=== PATIENT | female | born 1985 | race Caucasian/White ===

== ENCOUNTER → 2018-06-27 13:00 | Outpatient (CLI) | payer MEDICAID, SELFPAY ==
[2018-06-27 14:46] LABS: HCG,Quantitative 116246 mIU/mL
== END ==
PROVIDERS: Visit Provider Emergency Medicine
DX: Z32.00 Encounter for pregnancy test, result unknown (principal)
CPT/HCPCS: 36415; 84702

== ENCOUNTER → 2018-07-11 16:52 | Outpatient (CLI) | payer MEDICAID, SELFPAY ==
[2018-07-11 17:24] LABS: Basophils # 0.1 K/mm3 (0-0.2); Basophils % 0.5 % (0.1-2.0); Eosinophils # 0.1 K/mm3 (0.0-0.4); Eosinophils % 1.2 % (0.1-12.0); Hematocrit 32.1 % (37.0-47.0); Hemoglobin 10.7 g/dL (12.2-16.2); Lymphocytes # 2.7 K/mm3 (0.7-4.5); Lymphocytes % 26.4 % (10-50); Mean Corpuscular HGB Conc 33.3 g/dL (31.8-35.4); Mean Corpuscular Hemoglobin 30.1 pg (27.0-31.2); Mean Corpuscular Volume 90.5 fl (81-99); Mean Platelet Volume 8.5 fl (7.4-10.4); Monocytes # 0.6 K/mm3 (0.1-1.0); Monocytes % 5.9 % (1.7-9.3); Neutrophils # 6.7 K/mm3 (1.8-7.8); Platelet Count 252 K/mm3 (142-424); Red Blood Count 3.55 M/mm3 (4.20-5.40); Red Cell Distribution Width 13.1 % (11.5-17.5); White Blood Count 10.1 K/mm3 (4.8-10.8)
[2018-07-11 19:47] LABS: Thyroid Stimulating Hormone 3.75 uIU/ml (0.358-3.740)
[2018-07-11 20:23] LABS: Amphetamine/Metha Screen,Urine Negative ng/mL (<1000); Barbiturates Screen,Urine Negative ng/mL (<200); Benzodiazepines Screen,Urine Negative ng/mL (<200); Cannabinoid Screen,Urine Positive ng/mL (<50); Cocaine Screen,Urine Negative ng/mL (<300); Methadone Screen,Urine Positive ng/mL (<300); Opiate Screen,Urine Negative ng/mL (<300); Phencyclidine Screen,Urine Negative ng/mL (<25)
[2018-07-13 07:16] LABS: HIV Screen 4th Generation wRfx Non Reactive (Non Reactive)
[2018-07-14 18:26] LABS: Hepatitis B Surface Antigen Negative (Negative); Rapid Plasma Reagin Ab Titer Non Reactive (NonRea<1:1); Rubella Antibodies, IgG 1.25 index (Immune >0.99)
== END ==
PROVIDERS: Visit Provider Obstetrics & Gynecology
DX: Z34.90 Encounter for supervision of normal pregnancy, unspecified, unspecified trimester (principal)
CPT/HCPCS: 36415; 80305; 84443; 85025; 86592; 86703; 86762; 86850; 87340; G0432

== ENCOUNTER → 2018-08-23 10:22 | Outpatient (CLI) | payer MEDICAID, SELFPAY ==
[2018-08-25 00:06] LABS: AFP Value 57.9 ng/mL (.); DIA MoM 1.38 (.); DSR (Second Trimester) 1 IN 3469 (.); Gest. Age on Collection Date 16.1 WEEKS (.); Maternal Age At EDD 33.6 yr (.); OSBR Risk 1 IN 3048 (.); Results Report (.); hCG MoM 0.92 (.); uE3 MoM 1.45 (.); uE3 Value 1.35 ng/mL (.)
[2018-08-26 07:47] LABS: Gestat. Age Based On EDD (.)
== END ==
PROVIDERS: Visit Provider Obstetrics & Gynecology
DX: Z34.90 Encounter for supervision of normal pregnancy, unspecified, unspecified trimester (principal)
CPT/HCPCS: 36415; 82106

== ENCOUNTER → 2018-10-24 09:07 | Outpatient (CLI) | payer MEDICAID, SELFPAY ==
[2018-10-24 14:54] LABS: Glucose 1 Hour 88 mg/dL (74-106)
== END ==
PROVIDERS: Visit Provider Obstetrics & Gynecology
DX: Z34.90 Encounter for supervision of normal pregnancy, unspecified, unspecified trimester (principal)
CPT/HCPCS: 36415; 82951

== ENCOUNTER → 2019-01-14 16:26 | Outpatient (CLI) | payer MEDICAID, SELFPAY | PROVIDERS: Visit Provider Obstetrics & Gynecology | DX: Z34.90 Encounter for supervision of normal pregnancy, unspecified, unspecified trimester (principal) | CPT/HCPCS: 86403 ==

== ENCOUNTER 2019-02-09 05:56 | Inpatient (IN) ==
--- NOTE | 2019-02-09 07:47 | Progress Note ---
Internal Medicine - PN: Subj *Date: 02/09/19 *Time: 06:15 (This 33-year-old 1 para 0 AB 0 white female has arrived in the labor room at 38-3/7 weeks in active labor. Her cervix is 9 cm dilated, completely effaced, with the presenting vertex at 0 station and bag of water intact. She is asking for an epidural but clearly there is no time for that as she is denzel strongly and regularly. Plan is for vaginal delivery. The patient is known to be in a methadone clinic and has been doing well there. She has had regular care (records in the system).) Exam Vital signs and Labs for Last 24 Hours: Laboratory Results - last 24 hr 02/09/19 06:57: Cord ABG pH 7.35 I & O for Last 24 hours: Intake & Output 02/06/19 02/07/19 02/08/19 02/09/19 11:59 11:59 11:59 11:59 Weight 130 lb
--- NOTE | 2019-02-09 07:51 | Progress Note ---
Delivery date: 02/09/19 Events: Meconium Stained Fluid Intrapartal events: Precipitous Labor < 3 hours Induction method: none Delivery augmentation: rupture of membranes Delivery monitor: external uterine, internal FHT Route of delivery: forceps Indication for instrumentation: maternal exhaustion Episiotomy description: Midline Laceration description: None Delivery repair: vicryl (2-0), other Anesthesia type: Local Disposition: floor Complications: none Narrative: This 33-year-old 1, now para 1, Ab0 white female has had regular care and has done well. She is being followed in a methadone clinic. She arrived in the labor room in active labor, writhing in pain. Her cervix was completely effaced, 9 cm, with the presenting vertex at 0 station and bag of water intact. I was called and arrived expeditiously. At 0630 she was completely effaced, completely dilated, and an amniotomy revealed thin meconium stained fluid. Attempts at electrode placement were unsuccessful, and the baby was monitored externally. She was asking for an epidural, but clearly there was no time to accomplish that. She was writhing in pain and unable to be controlled. The baby looked good on the monitor throughout this event. Ultimately she asked for help and delivery, and so outlet forceps were placed at +2 station, and the baby was easily delivered over a midline episiotomy. There was a nuchal cord x1, which was easily reduced. The baby's nasal and oropharynx were bulb suction, and DeLee suctioned for mucus and minimal fluid. The cord was clamped and cut, 3 vessels were noted to be within the cord, and cord blood was obtained. The cord pH was 7.35. The baby was handed into the arms of the attending home builder, Dr. Fried, who assigned Apgars of 3 at 1 minute and 10 at 5 minutes to this 6 pound 9 ounce, 18 inch male infant, born at 0649. The baby was recovered in good condition. The placenta was delivered spontaneously, intact, at 0652, making the total time in labor 1 hour 52 minutes. The uterus was inspected and was felt to be clean, and was involuting well, with IV Pitocin running. There were no lacerations or extensions of the midline episiotomy, which (after infusion with 10 cc of 1% Xylocaine) was closed in the usual fashion, in layers, with 2-0 Vicryl. The rectovaginal septum was intact at the close of the procedure. The uterine fundus was involuting well, with IV Pitocin running. The sponge and needle counts correct. The estimated blood loss was 350 cc. The patient tolerated the procedure well, and was recovered in good condition. Her blood type is O+. Her rubella titer is immune. She plans to bottlefeed. She will be continued on her usual methadone dosages while in the hospital.
[2019-02-09 08:07] LABS: Basophils # 0.1 K/mm3 (0-0.2); Basophils % 0.4 % (0.1-2.0); Eosinophils # 0.2 K/mm3 (0.0-0.4); Eosinophils % 1.1 % (0.1-12.0); Hematocrit 35.5 % (37.0-47.0); Hemoglobin 11.5 g/dL (12.2-16.2); Lymphocytes # 2.1 K/mm3 (0.7-4.5); Mean Corpuscular HGB Conc 32.3 g/dL (31.8-35.4); Mean Corpuscular Volume 91.1 fl (81-99); Mean Platelet Volume 11.2 fl (7.4-10.4); Monocytes # 1.4 K/mm3 (0.1-1.0); Monocytes % 7.2 % (1.7-9.3); Neutrophils # 15.5 K/mm3 (1.8-7.8); Neutrophils % 80.3 % (37.0-80.0); Platelet Count 256 K/mm3 (142-424); Red Blood Count 3.89 M/mm3 (4.20-5.40); White Blood Count 19.3 K/mm3 (4.8-10.8)
[2019-02-09 08:49] LABS: Hematocrit 29.3 % (37.0-47.0)
[2019-02-09 09:00] LABS: Hemoglobin 9.6 g/dL (12.2-16.2)
--- NOTE | 2019-02-09 09:09 | Progress Note ---
Internal Medicine - PN: Subj *Date: 02/09/19 *Time: 09:06 (I was called back to see the patient because of heavy bleeding. She has had IV Pitocin running, and has been given 0.2 mg of Methergine IM and Hemabate. When I arrived, she had passed a large clot and her bleeding it somewhat slowed. I did a pelvic examination which reveals that her uterine fundus is well involuted, but there is still some moderate bleeding. Her hemoglobin on admission was 11.5 g. A stat H&H at this time is 9.3 g. I will observe the patient for a while now, and she seems stable. Pelvic examination revealed no evidence of laceration. Plan is to observe, and repeat an H&H in 2 hours. I have told the patient that transfusion is a possibility, and I failure typed and crossed for 2units in case that is needed. Her blood pressure is 130/86. Her O2 saturation is normal.) Exam Vital signs and Labs for Last 24 Hours: Laboratory Results - last 24 hr 02/09/19 06:35: WBC 19.3 H, RBC 3.89 L, Hgb 11.5 L, Hct 35.5 L, MCV 91.1, MCH 29.5, MCHC 32.3, RDW 15.0, Plt Count 256, MPV 11.2 H, Neut % (Auto) 80.3 H, Lymph % (Auto) 11.0, [place] % (Auto) 7.2, Eos % (Auto) 1.1, Baso % (Auto) 0.4, Neut # (Auto) 15.5 H, Lymph # (Auto) 2.1, [place] # (Auto) 1.4 H, Eos # (Auto) 0.2, Baso # (Auto) 0.1 02/09/19 06:57: Cord ABG pH 7.35 02/09/19 08:03: Blood Type O Positive, Antibody Screen Negative 02/09/19 08:43: Hgb 9.6 L D, Hct 29.3 L I & O for Last 24 hours: Intake & Output 02/06/19 02/07/19 02/08/19 02/09/19 11:59 11:59 11:59 11:59 Weight 130 lb
[2019-02-09 09:56] LABS: Lymphocytes % 13 % (10-50); Monocytes % 7 % (2-9); Neutrophils % 77 % (42-76); Total Cells Counted 100
[2019-02-09 09:57] LABS: RBC Morphology Normal
--- NOTE | 2019-02-09 10:19 | Progress Note ---
Internal Medicine - PN: Subj *Date: 02/09/19 *Time: 10:18 (I was called back a second time to see the patient who is again begun bleeding heavily. Blood pressure 100 over 50s. DTRs are normal. Estimated blood loss at this time is 2000 cc. She has been typed and crossed and blood will be started. I discussed with her taking her to the operating room for an examination under anesthesia and dilatation and evacuation. Risks and benefits have been discussed and she accepts this plan. She will be brought forthwith to the operating room and transfusion will be begun.) Exam Vital signs and Labs for Last 24 Hours: Laboratory Results - last 24 hr 02/09/19 06:35: WBC 19.3 H, RBC 3.89 L, Hgb 11.5 L, Hct 35.5 L, MCV 91.1, MCH 29.5, MCHC 32.3, RDW 15.0, Plt Count 256, MPV 11.2 H, Neut % (Auto) 80.3 H, Lymph % (Auto) 11.0, [place] % (Auto) 7.2, Eos % (Auto) 1.1, Baso % (Auto) 0.4, Neut # (Auto) 15.5 H, Lymph # (Auto) 2.1, [place] # (Auto) 1.4 H, Eos # (Auto) 0.2, Baso # (Auto) 0.1, Total Counted 100, Neutrophils % (Manual) 77 H, Band Neutrophils % 3.0, Lymphocytes % (Manual) 13, Monocytes % (Manual) 7, Platelet Estimate Normal, RBC Morphology Normal 02/09/19 06:57: Cord ABG pH 7.35 02/09/19 08:03: Blood Type O Positive, Antibody Screen Negative, Crossmatch (AHG) See Detail 02/09/19 08:43: Hgb 9.6 L D, Hct 29.3 L I & O for Last 24 hours: Intake & Output 02/06/19 02/07/19 02/08/19 02/09/19 11:59 11:59 11:59 11:59 Weight 130 lb
--- NOTE | 2019-02-09 11:10 | Operative Note ---
Date of procedure: 02/09/19 (4-hours forceps delivery-- hemorrhage, failed to be controlled with intravenous Pitocin, intramuscular Methergine, and Hemabate. Initial hemoglobin of 11.5 g; hemoglobin 9.3 g.) Pre-op Diagnosis:: hemorrhage Post-op Diagnosis:: 1. hemorrhage. 2. Retained products of conception. 3. Right sulcus tear. Procedure performed:: 1. Examination under anesthesia. 2. Dilatation and evacuation. 3. Repair of vaginal laceration. Surgeon:: Christiano Loving MD ACTUARIAL SCIENCE PROFESSOR:: Magen Stapleton Anesthesia: GETA Estimated blood loss (mL): 100 Operative findings:: 1. Retained products of conception. 2. Necrotic-appearing cervix. 3. Right sulcus tear. Operative note:: After the patient was prepped and draped in usual fashion and general anesthesia was administered, a weighted speculum was placed within the posterior fourchette of the vagina. The cervix was identified and at the introitus. Bimanual examination suggested a well involuted uterus, but the cervix easily admitted a #20 Hegar dilator, and a sharp curette was introduced into the endometrial cavity, with retrieval of a moderate amount of retained products of conception/placental tissue. Intravenous Pitocin was being infused during the procedure, as was the first of at least 2 units of packed cells. The cervix itself did not appear to be bleeding, but it had a necrotic appearance, and was very friable. It was oversewn in a circumferential fashion with #1 Vicryl for hemostasis. The only other finding was a fairly large right lateral sulcus tear, which did not apply appear to be actively bleeding. However it was also oversewn with a running locked suture of #1 Vicryl. There were no other findings consistent with bleeding. The fundus was palpated and kneaded, without significant bleeding. A second unit of blood was begun. The instruments were removed. The sponge and needle count was correct. The estimated blood loss for the procedure was 100 cc. A vaginal pack was placed in the vagina for evaluation of subsequent bleeding. The patient tolerated the procedure well, and was taken to PACU in stable condition. She will be followed closely for further blood loss and the possible need for further transfusion. It should be noted that she was given 2 g of Ancef preoperatively, and will be continued on that prophylactically for 2 more doses. Condition: stable Disposition: PACU Specimens:: Products of conception Complications:: None
--- NOTE | 2019-02-09 11:40 | Progress Note ---
[facility] Anesthesia Checklist - Patient Identification Patient Identification: Arm Band, Verbal (Name & ) - Structural Data Admitted From: Inpatient Planned Operative Procedure/s: D&E Consent for Planned Operative Procedure(s) Verified: Yes Verified Documents: Surgical Consent, History and Physical - Chart Verification Results Verified: CBC - Additional verifications Patient : No Anesthesia Reactions: No - Airway Assessment C-Spine Mobility Assessed: Yes TMJ Mobility Assessed: Yes Dentition: Poor Dentition - Neurological Assessment Level of Consciousness: Awake, Alert, Follows Commands, Lethargic, Restless Hx Seizures: No Numbness or tingling in extremities: No - Psychosocial Assessment Concerns Regarding Surgery: Pt states she is nervous, appears anxious. - Anesthesia Plan Anesthesia Risk discussed: Yes Anesthesia Plan: Verified ASA Class: III (Emergent) Anesthesia Type: General - Preoperative Comments Pre-Operative Comments: Pt assessed, lethargic, anxious, restless. EBL prior to surgery 2000ml. [facility] History I have reviewed the patient's past medical history: Yes Medical History: Reports:: Hepatitis (Hep C) Denies:: Diabetes Mellitus Type 1, Diabetes Mellitus Type 2 *Have you ever received a pneumonia vaccine?: No *Have you received a flu vaccine this season?: No (NA) Anesthesia experience/problems:: No prior complications Laterality Cases: Bilateral: Tonsillectomy Amputation: No Fractures: No - *Social History Smoking Status: Current every day smoker Tobacco Type: cigarettes # Packs/Day (cigarettes): 1 Alcohol Intake: never Alcohol Intake Frequency:: other Substance Use Type: former substance user, marijuana, heroin, opiates *Occupational Status:: unemployed *Travel in the last 8 weeks: None (NA) Family Hx:: No significant family history
--- NOTE | 2019-02-09 11:46 | Progress Note ---
[facility] Anesthesia Record Part I Intake, IV Amount: 1,700 Estimated blood loss (mL): 500 (2000 ml prior to OR) Urine output (mL): 0 (NM) Blood Products used (#): PRBC's (PRBC x2) Blood Pressure: 127/57 SaO2: 98 Pulse Rate: 106 Respiratory Rate: 22 Temperature: 97.4 F Patient is:: Awake, Stable Stable to PACU at:: 11:25 Comments:: Anthony hugger blanket used in PACU. Pt tolerated procedure well, Pain score 5/10, nausea noted, medication administered. V/S stable
--- NOTE | 2019-02-09 11:47 | Progress Note ---
[facility] Anesthesia Record Part II Discharge Time: 11:55 Destination: Obstetric PACU nurse assessment reviewed?: Yes Patient Condition:: Fair (Pt remains in mild/moderate pain, pt educated about difficulty to treat pain due to Methadone medication use.) Anesthesia Complications:: None Swallowing reflex intact?: Yes Cyanosis?: No
[2019-02-09 12:34] LABS: Hematocrit 27.6 % (37.0-47.0); Hemoglobin 9.7 g/dL (12.2-16.2)
[2019-02-09 17:40] LABS: Hematocrit 27.9 % (37.0-47.0); Hemoglobin 9.4 g/dL (12.2-16.2)
[2019-02-09 19:01] LABS: Microscopic, Urine URINE MICROSCOPIC (MICROSCOPIC)
[2019-02-09 19:26] LABS: Appearance,Urine CLEAR (Clear); Bilirubin,Urine Negative (Negative); Blood, Urine 2+ (Negative); Color,Urine YELLOW (Yellow); Glucose,Urine (UA) Negative (Negative); Ketones,Urine Negative (Negative); Leukocyte Esterase,Urine Negative (Negative); PH,Urine 6.5 (5.0-8.5); Protein,Urine Negative (Negative); Urobilinogen,Urine 0.2 EU/dl (0.2)
[2019-02-09 19:31] LABS: Amphetamine/Metha Screen,Urine Negative ng/mL (<1000); Barbiturates Screen,Urine Negative ng/mL (<200); Benzodiazepines Screen,Urine Positive ng/mL (<200); Cannabinoid Screen,Urine Positive ng/mL (<50); Cocaine Screen,Urine Negative ng/mL (<300); Methadone Screen,Urine Positive ng/mL (<300); Opiate Screen,Urine Positive ng/mL (<300); Phencyclidine Screen,Urine Negative ng/mL (<25)
[2019-02-10 05:53] LABS: Hematocrit 20.9 % (37.0-47.0); Hemoglobin 7.1 g/dL (12.2-16.2)
--- NOTE | 2019-02-10 07:11 | Progress Note ---
Internal Medicine - PN: Subj *Date: 02/10/19 *Time: 07:09 (This is and postop day #1. The patient is afebrile. Her vital signs are stable. Her abdomen is soft. Her lochia is now normal. Her uterine fundus has involuted well. After her vaginal pack was removed, there has been minimal to the normal lochia. During the night she complained of some shortness of breath, but has a history of bronchitis. A chest x-ray was normal, and she received a nebulizer treatment, which has helped. Her hemoglobin after 2 units of transfused packed cells is 7.1 this morning, and she will be transfused 2 more units today. The baby is doing well and has been circumcised. The patient is now planning to breast-feed. Impression: Improving.) Exam Vital signs and Labs for Last 24 Hours: Temp Pulse Resp BP Pulse Ox 98.8 F 85 18 127/64 96 02/10/19 03:00 02/10/19 03:00 02/10/19 03:00 02/10/19 03:00 02/10/19 03:00 Laboratory Results - last 24 hr 02/09/19 06:35: WBC 19.3 H, RBC 3.89 L, Hgb 11.5 L, Hct 35.5 L, MCV 91.1, MCH 29.5, MCHC 32.3, RDW 15.0, Plt Count 256, MPV 11.2 H, Neut % (Auto) 80.3 H, Lymph % (Auto) 11.0, [place] % (Auto) 7.2, Eos % (Auto) 1.1, Baso % (Auto) 0.4, Neut # (Auto) 15.5 H, Lymph # (Auto) 2.1, [place] # (Auto) 1.4 H, Eos # (Auto) 0.2, Baso # (Auto) 0.1, Total Counted 100, Neutrophils % (Manual) 77 H, Band Neutrophils % 3.0, Lymphocytes % (Manual) 13, Monocytes % (Manual) 7, Platelet Estimate Normal, RBC Morphology Normal 02/09/19 08:03: Blood Type O Positive, Antibody Screen Negative, Crossmatch (AHG) See Detail 02/09/19 08:43: Hgb 9.6 L D, Hct 29.3 L 02/09/19 12:28: Hgb 9.7 L, Hct 27.6 L 02/09/19 17:30: Hgb 9.4 L, Hct 27.9 L 02/09/19 18:45: Urine Opiates Screen Positive H, Urine Methadone Screen Positive H, Ur Barbituates Screen Negative, Ur Phencyclidine Scrn Negative, Ur Amphetamines Screen Negative, U Benzodiazepines Scrn Positive H, Urine Cocaine Screen Negative, U Marijuana (THC) Screen Positive H 02/09/19 18:45: Urine Color Yellow, Urine Appearance Clear, Urine pH 6.5, Ur Specific [place] 1.010, Urine Protein Negative, Urine Glucose (UA) Negative, Urine Ketones Negative, Urine Blood 2+, Urine Nitrate Negative, Urine Bilirubin Negative, Urine Urobilinogen 0.2, Ur Leukocyte Esterase Negative, Urine RBC 5-10 02/10/19 05:45: Hgb 7.1 L* D, Hct 20.9 L* I & O for Last 24 hours: Intake & Output 02/07/19 02/08/19 02/09/19 02/10/19 11:59 11:59 11:59 11:59 Intake Total 1700 / 1700 150 / 150 Balance 1700 / 1700 150 / 150 Weight 140 lb
[2019-02-10 14:35] LABS: Hemoglobin 10.2 g/dL (12.2-16.2)
--- NOTE | 2019-02-10 15:24 | Progress Note ---
Internal Medicine - PN: Subj *Date: 02/10/19 *Time: 15:23 (Patient has now had her third and fourth units of blood. Her h emoglobin is 10.2 g. She has minimal bleeding, and feels well. She is breast- feeding. Impression: Stable.) Exam Vital signs and Labs for Last 24 Hours: Temp Pulse Resp BP Pulse Ox 98.9 F 91 H 20 119/69 96 02/10/19 14:06 02/10/19 14:06 02/10/19 14:06 02/10/19 14:06 02/10/19 14:06 Laboratory Results - last 24 hr 02/09/19 08:03: Blood Type O Positive, Antibody Screen Negative, Crossmatch (AHG) See Detail 02/09/19 17:30: Hgb 9.4 L, Hct 27.9 L 02/09/19 18:45: Urine Opiates Screen Positive H, Urine Methadone Screen Positive H, Ur Barbituates Screen Negative, Ur Phencyclidine Scrn Negative, Ur Amphetamines Screen Negative, U Benzodiazepines Scrn Positive H, Urine Cocaine Screen Negative, U Marijuana (THC) Screen Positive H 02/09/19 18:45: Urine Color Yellow, Urine Appearance Clear, Urine pH 6.5, Ur Specific [place] 1.010, Urine Protein Negative, Urine Glucose (UA) Negative, Urine Ketones Negative, Urine Blood 2+, Urine Nitrate Negative, Urine Bilirubin Negative, Urine Urobilinogen 0.2, Ur Leukocyte Esterase Negative, Urine RBC 5-10 02/10/19 05:45: Hgb 7.1 L* D, Hct 20.9 L* 02/10/19 14:10: Hgb 10.2 L D, Hct 30.0 L I & O for Last 24 hours: Intake & Output 02/08/19 02/09/19 02/10/19 02/11/19 11:59 11:59 11:59 11:59 Intake Total 1700 / 1700 400 / 400 250 / 250 Balance 1700 / 1700 400 / 400 250 / 250 Weight 140 lb
[2019-02-11 07:00] LABS: Hematocrit 27.4 % (37.0-47.0)
--- NOTE | 2019-02-11 07:14 | Consult Report ---
*Admission Date: 02/09/19 *Reason for consult:: Cough and shortness of breath *History of present illness: 33-year-old female who delivered her first child here at the hospital on February 09 has been having cough, shortness of breath since admission. I was consulted for medical evaluation of her symptoms. Patient reports being treated for bronchitis in the days leading up to her hospitalization and had actually been taking a Z-Erick. After delivery due to hemorrhage she had to be taken to the operating room. She was transfused 2 units of packed red blood cells yesterday. She was reporting to the nurses that she had shortness of breath and cough and nursing staff reported to me wheezing and rhonchi in this patient. Patient was started on breathing treatments and given a dose of prednisone. Chest x-ray was ordered which was negative for pneumonia. Patient was also given an oral dose of prednisone. This morning patient reports slight improvement in symptoms. She is 1/2 pack/day smoker although has not had a cigarette since hospitalization and is using nicotine patches. Her cough is nonproductive. She denies fevers and chills here in the hospital or at home [facility] History I have reviewed the patient's past medical history: Yes Medical History: Reports:: Hepatitis (Hep C) Denies:: Diabetes Mellitus Type 1, Diabetes Mellitus Type 2, Seizures *Have you ever received a pneumonia vaccine?: No *Have you received a flu vaccine this season?: No (NA) Anesthesia experience/problems:: No prior complications Laterality Cases: Bilateral: Tonsillectomy Other Surgeries: No: Amputation: No Fractures: No - *Social History Smoking Status: Current every day smoker Tobacco Type: cigarettes # Packs/Day (cigarettes): 1 Alcohol Intake: never Alcohol Intake Frequency:: other Substance Use Type: former substance user, marijuana, heroin, opiates *Occupational Status:: employed *Travel in the last 8 weeks: None (NA) Family Hx:: No significant family history Para: 0 Review of Systems - Constitutional Denies anorexia, Denies body ache(s), Denies chills - *Cardiovascular Denies chest pain, Denies chest pain at rest - *Respiratory Reports chest congestion, Reports cough, Reports shortness of breath, Reports wheezing, Denies change in phlegm color, Denies coughing up blood, Denies pain on inspiration, Denies pain with cough, Denies snoring, Denies stridor Meds Home Medications Medication Instructions Recorded Confirmed Type Acetaminophen [Tylenol 325mg 325 mg PO Q6H PRN 30 Days #120 tab 02/07/19 02/09/19 Rx Tablet] Azithromycin [Zithromax 250mg 250 mg PO DIRECTED 02/09/19 02/09/19 History tab] Methadone HCl [Methadone 10mg 50 mg PO DAILY 02/09/19 02/09/19 History Tablet] Allergies Allergy/AdvReac Type Severity Reaction Status Date / Time sulfamethoxazole Allergy Verified 02/03/19 13:56 [From Bactrim] trimethoprim [From Bactrim] Allergy Verified 02/03/19 13:56 Exam Vital signs and Labs for Last 24 Hours: Temp Pulse Resp BP Pulse Ox 98.3 F 81 16 131/77 96 02/11/19 04:00 02/11/19 06:21 02/11/19 04:00 02/11/19 04:00 02/10/19 20:49 Laboratory Results - last 24 hr 02/09/19 08:03: Blood Type O Positive, Antibody Screen Negative, Crossmatch (AHG) See Detail 02/10/19 14:10: Hgb 10.2 L D, Hct 30.0 L I & O for Last 24 hours: Intake & Output 02/08/19 02/09/19 02/10/19 02/11/19 11:59 11:59 11:59 11:59 Intake Total 1700 / 1700 400 / 400 250 / 250 Balance 1700 / 1700 400 / 400 250 / 250 Weight 140 lb - Constitutional no acute distress - *Routine HEENT Exam Head: Present: normocephalic Eye: Present: EOMI, PERRL ENT: Present: mucous membranes moist - *Routine Respiratory Exam Present: rhonchi, wheezes - *Routine Cardiovascular Exam Present: RRR, Normal S1, Normal S2 - *Routine Extremities Exam Present: full ROM. Absent: clubbing, edema Internal Medicine - CN: Reslt - Labs CBC & Chem 7: 02/10/19 14:10 Labs: Short CBC 02/10/19 Range/Units 14:10 Hgb 10.2 L D (12.2-16.2) g/dL Hct 30.0 L (37.0-47.0) % Assessment and Plan (1) Acute bronchitis, unspecified Current visit: No Status: Acute Qualifiers: Bronchitis organism: unspecified organism Qualified Code(s): J20.9 - Acute bronchitis, unspecified Category: Medical Code(s): J20.9 - Acute bronchitis, unspecified - Assessment and plan all Dx Assessment and Plan for all problems:: Continue oral steroids and azithromycin. Continue breathing treatments. Use incentive spirometer. Ambulate.
--- NOTE | 2019-02-11 07:18 | Progress Note ---
Internal Medicine - PN: Subj *Date: 02/11/19 *Time: 07:16 (This is day #2. The patient is afebrile. Her vital signs are stable. Her lochia is normal (minimal bleeding). Abdomen soft. Uterine fundus has involuted well. She is pumping her breasts for breast milk. She is receiving breathing treatments 4 times a day (per Dr. Fried), and her respiratory effort is much better. The baby is being held for observation. The plan is to observe the patient today for possible discharge tomorrow.) Exam Vital signs and Labs for Last 24 Hours: Temp Pulse Resp BP Pulse Ox 98.3 F 81 16 131/77 96 02/11/19 04:00 02/11/19 06:21 02/11/19 04:00 02/11/19 04:00 02/10/19 20:49 Laboratory Results - last 24 hr 02/09/19 08:03: Blood Type O Positive, Antibody Screen Negative, Crossmatch (AHG) See Detail 02/10/19 14:10: Hgb 10.2 L D, Hct 30.0 L 02/11/19 06:18: Hct 27.4 L I & O for Last 24 hours: Intake & Output 02/08/19 02/09/19 02/10/19 02/11/19 11:59 11:59 11:59 11:59 Intake Total 1700 / 1700 400 / 400 250 / 250 Balance 1700 / 1700 400 / 400 250 / 250 Weight 140 lb Assessment and Plan (1) Acute bronchitis, unspecified Current visit: No Status: Acute Qualifiers: Bronchitis organism: unspecified organism Qualified Code(s): J20.9 - Acute bronchitis, unspecified Category: Medical Code(s): J20.9 - Acute bronchitis, unspecified
[2019-02-11 07:20] LABS: Hemoglobin 9.2 g/dL (12.2-16.2)
[2019-02-11 12:01] VITALS: BP 116/53
--- NOTE | 2019-02-11 14:40 | Progress Note ---
Internal Medicine - PN: Subj *Date: 02/11/19 *Time: 14:39 (The patient is doing better from a respiratory standpoint. How ever, the baby is being transferred to because of withdrawal symptoms, and the patient wishes discharge. I am going to discharge her at this point time with follow-up in 2 weeks. She can follow-up with Dr. Fried with regard to any respiratory issues.) Exam Vital signs and Labs for Last 24 Hours: Temp Pulse Resp BP Pulse Ox 98.1 F 102 H 20 116/53 L 98 02/11/19 12:00 02/11/19 13:50 02/11/19 12:00 02/11/19 12:00 02/11/19 12:00 Laboratory Results - last 24 hr 02/11/19 06:18: Hgb 9.2 L, Hct 27.4 L I & O for Last 24 hours: Intake & Output 02/09/19 02/10/19 02/11/19 02/12/19 11:59 11:59 11:59 11:59 Intake Total 1700 / 1700 400 / 400 250 / 250 Balance 1700 / 1700 400 / 400 250 / 250 Weight 140 lb Assessment and Plan (1) Acute bronchitis, unspecified Current visit: No Status: Acute Qualifiers: Bronchitis organism: unspecified organism Qualified Code(s): J20.9 - Acute bronchitis, unspecified Category: Medical Code(s): J20.9 - Acute bronchitis, unspecified
--- NOTE | 2019-02-11 14:47 | Discharge Summary ---
General - General Admission date:: 02/09/19 Discharge date: 02/11/19 (This 33-year-old 1, now para 1, Ab0 white female was admitted at 39-3/7 weeks in active labor at 9 cm of dilatation. She had been attending a methadone clinic and doing well there. She went steadily to completion, but was writhing in pain and unable to push effectively. She was delivered by outlet forceps over a midline episiotomy at 0652 on 02/09/2019. The baby was an 3/10, 6 pound 9 ounce, 18 inch male , who is breast- feeding, has been circumcised, and initially did well. Subsequently the baby developed severe withdrawal symptoms and is being transferred to at this time. Postoperatively, the patient bled heavily and was subsequently taken to the operating room for a D&C and oversewing of a right sulcus tear. Her hemoglobin from an initial 9.6 g on admission dropped to 7.1 g, and she was transfused a total of 4 units of packed cells, at which her hemoglobin is stabilized at 9.2 g. She also had symptoms of respiratory distress. A chest x- ray was normal, but she was diagnosed with acute bronchitis and was seen by Dr. Fried in consultation. She was started on nebulizer treatments and her symptoms have greatly improved. She is anxious for discharge because the baby is being transferred. She is discharged home on the second day and postoperative day on iron 3 times a day and vitamins daily, and on Tylenol Motrin, as needed for pain. She is to resume her methadone clinic on a daily basis. She is to follow-up with Dr. Fried for any respiratory difficulties. She is given appropriate instructions as to diet, exercise, and episiotomy care, and she is to return the office in 2 weeks for follow-up. Her blood type is O+. Her rubella titer is immune. ) Hospital Course Rhogam Administration: Not Indicated Objective Vital signs: Temp Pulse Resp BP Pulse Ox 98.1 F 102 H 20 116/53 L 98 02/11/19 12:00 02/11/19 13:50 02/11/19 12:00 02/11/19 12:00 02/11/19 12:00 Results Labs on day of discharge: Labs from last 24 hours 02/11/19 06:18 Hgb 9.2 L Hct 27.4 L DS: Diagnosis - Discharge Diagnosis (1) Acute bronchitis, unspecified Status: Acute Discharge Plan - Patient Discharge Instructions ACTIVITY: Ambulate as tolerated DIET: advance to your usual diet Additional Instructions: NO HEAVY LIFTING, NO DRIVING FOR 2 WEEKS, NOTHING IN VAGINA FOR 6 WEEKS. Patient Instructions: Depression, Hemorrhage, [facility] Post Discharge Instructions - Follow up Plan Follow up with: Christiano Loving MD [Staff Physician] - Disposition: Home, Self-Senior Care Medications: Home Medications Medication Instructions Recorded Confirmed Type Acetaminophen [Tylenol 325mg 325 mg PO Q6H PRN 30 Days #120 tab 02/07/19 02/09/19 Rx Tablet] Azithromycin [Zithromax 250mg 250 mg PO DIRECTED 02/09/19 02/09/19 History tab] Methadone HCl [Methadone 10mg 50 mg PO DAILY 02/09/19 02/09/19 History Tablet] Prescriptions/Medication Reconciliation: New predniSONE [Deltasone 20mg tablet] 20 mg PO DAILY tablet Methadone HCl [Methadone 10mg Tablet] 50 mg PO DAILY tablet Continued Acetaminophen [Tylenol 325mg Tablet] 325 mg PO Q6H PRN 30 Days #120 tab PRN Reason: As Needed For Fever Or Pain Methadone HCl [Methadone 10mg Tablet] 50 mg PO DAILY Discontinued Azithromycin [Zithromax 250mg tab] 250 mg PO DIRECTED - Problem Reconciliation Problems Reviewed?: Yes
== END 2019-02-11 15:45 | disposition home or self-care (01) | DRG 798 ==
LOC: OBOUT 05:56 → OB 06:01
PROVIDERS: ADMIT Obstetrics & Gynecology; ATTEND Obstetrics & Gynecology
CPT/HCPCS: 36415; 59025; 71010; 71045; 80305; 81001; 82800; 85007; 85014; 85018; 85025; 86850; 88305; 88307; 94640; 94761; 99201; J0131; J2405; P9016

== ENCOUNTER → 2019-11-03 11:17 | Outpatient (CLI) | payer MEDICAID, SELFPAY ==
[2019-11-03 13:59] LABS: Coronavirus 19 IgG Antibody Negative (Negative); Coronavirus 19 IgM Antibody Negative (Negative)
[2019-11-03 15:40] LABS: HCG,Quantitative < 2 mIU/ml (0-5.42)
== END ==
PROVIDERS: Visit Provider Obstetrics & Gynecology
DX: Z03.818 Encounter for observation for suspected exposure to other biological agents ruled out (principal); Z32.00 Encounter for pregnancy test, result unknown
CPT/HCPCS: 36415; 84702; 86328

== ENCOUNTER → 2019-11-07 15:23 | Outpatient (CLI) | payer MEDICAID, SELFPAY ==
--- NOTE | 2019-11-07 15:23 | US_ITS ---
PROCEDURE: US TRANSVAGINAL CLINICAL INDICATION: US T/V- pelvic pain Severe pelvic pain with prolonged vaginal bleeding COMPARISON: No exams were available for comparison FINDINGS: UTERUS: 7cm x 4cmx 4cm with a combined endometrial thickness of 2.9mm LEFT OVARY: [id number] with a volume of 53.4ml. There is a 3.8 by 4 cm left adnexal mass which is somewhat hyperechoic with heterogeneous echotexture and may represent an endometrioma or hemorrhagic cyst. RIGHT OVARY: [id number] with a volume of 6.5ml. Small follicles of the right ovary noted. No cul-de-sac fluid. IMPRESSION: 4 cm left adnexal mass. This may be due to an endometrioma or hemorrhagic ovarian cyst. Suggest 6-12 week follow-up to confirm resolution Dictated by: Donal Donohue MD 11/07/2019 16:16 Electronically signed by Donal Donohue MD in [place] 11/07/2019 16:16
== END ==
PROVIDERS: PCP Pediatrics; Visit Provider Obstetrics & Gynecology
DX: R10.2 Pelvic and perineal pain (principal)
CPT/HCPCS: 76830

== ENCOUNTER → 2019-11-12 09:01 | Outpatient (CLI) | payer MEDICAID, SELFPAY ==
[2019-11-12 09:58] LABS: Basophils # 0.1 K/mm3 (0-0.2); Basophils % 0.7 % (0.1-2.0); Eosinophils # 0.2 K/mm3 (0.0-0.4); Eosinophils % 2.6 % (0.1-12.0); Hematocrit 35.7 % (37.0-47.0); Lymphocytes # 2.9 K/mm3 (0.7-4.5); Lymphocytes % 40.2 % (10-50); Mean Corpuscular HGB Conc 33.7 g/dL (31.8-35.4); Mean Corpuscular Hemoglobin 29.9 pg (27.0-31.2); Mean Corpuscular Volume 88.8 fl (81-99); Mean Platelet Volume 8.4 fl (7.4-10.4); Monocytes # 0.6 K/mm3 (0.1-1.0); Monocytes % 8.5 % (1.7-9.3); Neutrophils # 3.5 K/mm3 (1.8-7.8); Platelet Count 259 K/mm3 (142-424); Red Blood Count 4.02 M/mm3 (4.20-5.40); Red Cell Distribution Width 13.3 % (11.5-17.5); White Blood Count 7.2 K/mm3 (4.8-10.8)
[2019-11-12 10:48] LABS: Chloride 105 mmol/L (98-107)
[2019-11-12 10:49] LABS: Potassium 4.2 mmoL/L (3.5-5.1); Sodium 139 mmol/L (136-145)
[2019-11-12 10:51] LABS: Alanine Aminotransferase 10 U/L (12-78); Alkaline Phosphatase 57 U/L (38-126); Aspartate Amino Transferase 26 U/L (14-36); Bilirubin,Total 0.4 mg/dl (0.2-1.3); Blood Urea Nitrogen 10 mg/dl (7-17); Estimated Glomerular Filt Rate 82 ml/min (>60); GFR (African American) 99 ML/MIN (>60)
[2019-11-12 10:52] LABS: Albumin Level 3.8 g/dl (3.5-5.0); Albumin/Globulin Ratio 1.4 (1.1-1.8); Anion Gap 11.2 mEq/L (5-15); Calcium 8.9 mg/dl (8.4-10.2); Carbon Dioxide 27 mmol/L (22.0-30.0); Globulin 2.8 g/dL (1.3-3.2); Glucose 93 mg/dl (74-100); Total Protein,Serum 6.6 g/dl (6.3-8.2)
[2019-11-12 11:10] LABS: HCG,Quantitative < 2 mIU/ml (0-5.42)
[2019-11-12 12:53] LABS: Coronavirus 19 IgG Antibody Negative (Negative); Coronavirus 19 IgM Antibody Negative (Negative)
== END ==
PROVIDERS: Visit Provider Obstetrics & Gynecology
DX: Z01.818 Encounter for other preprocedural examination (principal); N80.9 Endometriosis, unspecified
CPT/HCPCS: 36415; 80053; 84702; 85025; 86328

== ENCOUNTER 2019-11-14 10:29 | Day surgery (SDC) | payer MEDICAID, SELFPAY ==
[2019-11-14] VITALS (14 sets, daily range): BP systolic 101–142; BP diastolic 60–77; PULSE 71–116; RESP 12–20; TEMP 36.6–43; O2SAT 94–100
[2019-11-14 11:46] LABS: HCG Qualitative, Serum Negative (Negative)
--- NOTE | 2019-11-14 13:38 | P.PN_ITS ---
[facility] Anesthesia Checklist - Structural Data Admitted From: Home Planned Operative Procedure/s: dx lap Consent for Planned Operative Procedure(s) Verified: Yes - Additional verifications Anesthesia Reactions: No Hx Blood Transfusions: Yes Blood Transfusion Reaction: No - Airway Assessment C-Spine Mobility Assessed: Yes TMJ Mobility Assessed: Yes Dentition: Good Dentition - Neurological Assessment Level of Consciousness: Awake, Alert, Appropriate - Anesthesia Plan Anesthesia Risk discussed: Yes Anesthesia Plan: Verified ASA Class: II Anesthesia Type: General [facility] History I have reviewed the patient's past medical history: Yes Medical History: Reports:: Hepatitis Denies:: Cancer, Diabetes Mellitus Type 1, Diabetes Mellitus Type 2, MRSA, Seizures *Have you ever received a pneumonia vaccine?: No *Have you received a flu vaccine this season?: No Other Medical History: Denies: Blood Transfusion Reaction Anesthesia experience/problems:: none Laterality Cases: Left: Arthroscopy Knee, Breast Biopsy, Bilateral: Tonsillectomy Other Surgeries: No: Amputation: No Fractures: No - *Social History Last grade of school completed: High school graduate Smoking Status: Current every day smoker Tobacco Type: cigarettes # Packs/Day (cigarettes): 1 Alcohol Intake: never Alcohol Intake Frequency:: other Substance Use Type: denies use *Occupational Status:: employed Housing: house Household Members: children *Travel in the last 8 weeks: None Family Hx:: No significant family history
--- NOTE | 2019-11-14 14:42 | HMH.ANESI ---
[facility] Anesthesia Record Part I Intake, IV Amount: 1,500 Estimated blood loss (mL): 25 Urine output (mL): 0 Blood Pressure: 116/72 SaO2: 97 Pulse Rate: 113 Respiratory Rate: 20 Temperature: 98 F Patient is:: Awake, Stable Stable to PACU at:: 14:40
--- NOTE | 2019-11-14 14:56 | HMH.OPNOTE ---
Date of procedure: 11/14/19 Pre-op Diagnosis:: 1. Pelvic pain 2. Left adnexal mass 3. Endometriosis 4. DUB 5. Nexplanon in place Post-op Diagnosis:: 1. Pelvic pain 2. Left adnexal mass 3. Endometriosis 4. DUB 5. Nexplanon in place Procedure performed:: 1. Diagnostic laparoscopy 2. Left salpingo-oophorectomy 3. Nexplanon removal Surgeon:: Ramona Gibbs MD SWITCHING OPERATOR:: Fred Cancino Anesthesia: GETA Estimated blood loss (mL): 20 Operative findings:: grossly enlarged left ovary with 5cm mass c/w endometrioma Nexplanon in place, left upper extremity Operative note:: The patient was taken to the operating room and general anesthesia was administered. She was prepped/draped in lithotomy position. A uterine manipulator was placed without difficulty. Gloves were changed and attention was turned to the abdomen. A 5mm skin incision was made in the umbilical fold and the verees needle was inserted through the peritoneum and into the abdominal cavity in standard fashion. The abdomen was insufflated with CO2 gas. A 5mm non-bladed trocar was inserted directly into the abdominal cavity and appropriate placement was confirmed with the laparoscope. No intra-abdominal injuries occurred during entry into the abdominal cavity, as confirmed visually with the laparoscope. The patient was placed in trendelenburg and a 10mm skin incision was made 2cm above the pubic symphysis. A 10mm non-bladed trocar was inserted under direct visualization, without complication. The uterus was elevated out of the pelvis in order to better visualize the anatomy. A survey of the pelvis and abdomen revealed the findings noted above. A 10mm skin incision was made in the left lower quadrant and a non-bladed trocar was inserted under direct visualization, without complication. The left adnexal mass appeared consistent with an endometrioma, but it encompassed the majority of the ovary. The right ovary and uterus appeared normal. The left ovary and fallopian tube were excised using the harmonic scalpel. The specimen was placed in an endobag and removed through the LLQ incision. The abdomen and pelvis were irrigated and the pedicle remained hemostatic. The abdomen was then evacuated of gas and all trocars removed. The fascia in the 10mm incisions were closed with 2-0 vicryl. The skin incisions were closed with 4-0 monocryl. The medial aspect of the left upper extremity was prepped with alcohol. Lidocaine 2% was injected subcutaneously, 3cc. A 5mm skin incision was made at the distal end of the nexplanon and the device was grasped with a hemostat and removed. The skin incision was closed with 4-0 monocryl. All sponge/lap/needle/instrument counts correct for both abdominal and vaginal procedures. Total EBL: 20 cc. The patient was taken out of lithotomy position, extubated and taken to the PACU in stable condition. Condition: stable Disposition: PACU Specimens:: Left fallopian tube and ovary Complications:: none
--- NOTE | 2019-11-14 16:56 | HMH.ANESII ---
[facility] Anesthesia Record Part II Discharge Time: 15:03 Destination: Surgical Day Care (OP Surgery) PACU nurse assessment reviewed?: Yes Patient Condition:: Good Anesthesia Complications:: None Swallowing reflex intact?: Yes Cyanosis?: No Blood Pressure: 142/66 Pulse Rate: 95 Temperature: 98 F Mental Status: Alert & Oriented Pain level:: 5 Nausea and/or vomitting:: None Intake, IV Amount: 0
== END 2019-11-14 15:50 | disposition home or self-care (01) ==
LOC: OR 10:30
PROVIDERS: PCP Pediatrics; Visit Provider Obstetrics & Gynecology
PROC: (CPT 58925; principal; 2019-11-14 12:15)
DX: N80.1 Endometriosis of ovary (principal); N93.8 Other specified abnormal uterine and vaginal bleeding; Z97.5 Presence of (intrauterine) contraceptive device; K75.9 Inflammatory liver disease, unspecified; Z87.39 Personal history of other diseases of the musculoskeletal system and connective tissue; Z90.89 Acquired absence of other organs; Z72.0 Tobacco use; Z88.2 Allergy status to sulfonamides; Z79.899 Other long term (current) drug therapy
CPT/HCPCS: 58661; 11982; 84703; 96374; J2405; J2710

== ENCOUNTER → 2022-03-02 17:07 | Outpatient (CLI) | payer MEDICAID, SELFPAY | PROVIDERS: PCP Pediatrics; Visit Provider Obstetrics & Gynecology | DX: N92.6 Irregular menstruation, unspecified (principal); Z32.00 Encounter for pregnancy test, result unknown | CPT/HCPCS: 36415; 84702 ==

== ENCOUNTER → 2022-03-06 12:50 | Outpatient (CLI) | payer MEDICAID, SELFPAY | PROVIDERS: Visit Provider Obstetrics & Gynecology | DX: N92.6 Irregular menstruation, unspecified (principal); Z32.00 Encounter for pregnancy test, result unknown | CPT/HCPCS: 36415; 84702 ==

== ENCOUNTER → 2022-03-17 14:50 | Outpatient (CLI) | payer MEDICAID, SELFPAY ==
[2022-03-17 15:31] LABS: Basophils % 0.4 % (0.1-2.0); Eosinophils % 0.3 % (0.1-12.0); Hematocrit 36.1 % (37.0-47.0); Hemoglobin 11.9 g/dL (12.2-16.2); Lymphocytes # 1.8 K/mm3 (0.7-4.5); Lymphocytes % 19.9 % (10-50); Mean Corpuscular HGB Conc 32.9 g/dL (31.8-35.4); Mean Corpuscular Hemoglobin 29.9 pg (27.0-31.2); Mean Corpuscular Volume 90.6 fl (81-99); Mean Platelet Volume 8.8 fl (7.4-10.4); Monocytes # 0.4 K/mm3 (0.1-1.0); Monocytes % 4.5 % (1.7-9.3); Neutrophils # 6.9 K/mm3 (1.8-7.8); Neutrophils % 74.8 % (37.0-80.0); Platelet Count 255 K/mm3 (142-424); Red Blood Count 3.98 M/mm3 (4.20-5.40); Red Cell Distribution Width 13.6 % (11.5-17.5); White Blood Count 9.2 K/mm3 (4.8-10.8)
[2022-03-19 09:20] LABS: Rubella Antibodies, IgG 1.66 index (Immune >0.99)
[2022-04-01 22:13] LABS: HIV Screen 4th Generation wRfx Non Reactive; Hepatitis B Surface Antigen Negative
[2022-04-01 22:14] LABS: Hepatitis C Antibody <0.1; Rapid Plasma Reagin Ab Titer Non Reactive
== END ==
PROVIDERS: PCP Pediatrics; Visit Provider Obstetrics & Gynecology
DX: Z34.90 Encounter for supervision of normal pregnancy, unspecified, unspecified trimester (principal)
CPT/HCPCS: 36415; 85025; 86592; 86703; 86762; 86850; 87340; 87380; G0432

== ENCOUNTER → 2022-06-02 12:54 | Outpatient (CLI) | payer MEDICAID, SELFPAY ==
--- NOTE | 2022-06-02 13:02 | US_ITS ---
FINAL REPORT CLINICAL HISTORY: 20 week anatomy scan FINDINGS: There is a single live intrauterine gestation. Presentation is cephalic. The cervix is closed and measures 3 cm. Placenta is posterior. movement is noted. Heart rate is detected at 135 beats per minute. Three-vessel cord is present. Four-chamber heart is noted. There is an echogenic intracardiac focus. brain and ventricles are unremarkable. Chest and diaphragm are unremarkable. ABDOMEN: Both kidneys are unremarkable. Stomach is unremarkable. SPINE: No gross anomaly. Both arms and legs noted. AMNIOTIC FLUID: Appropriate amount. MEASUREMENTS: ULTRASOUND AGE: 20 weeks 0 days. GESTATION AGE: 18 weeks 6 days. ESTIMATED WEIGHT: 323 g GROWTH PERCENTILE: 96 % BPD: 4.63 cm corresponding to 20 weeks 0 days. OFD: 5.88 cm corresponding to 20 weeks 2 days. HC: 16.63 cm corresponding to 19 weeks 3 days. AC: 15.02 cm corresponding to 20 weeks 2 days. FL: 3.14 cm corresponding to 19 weeks 6 days. CEREBELLUM: 1.93 cm corresponding to 19 weeks 6 days. HUMERUS: 3.12 cm corresponding to 20 weeks 3 days. HC/AC: 1.11 CI: 79% FL/BPD: 68% FL/AC: 21 point IMPRESSION: Single living IUP with an ultrasound age of 20 weeks 0 days. Intracardiac echogenic focus. Recommend high-level [facility] ultrasound. Reviewed, Interpreted and Dictated by Ivonne Granados MD Transcribed by Paola Olivier Authenticated and [facility]
== END ==
PROVIDERS: PCP Pediatrics; Visit Provider Obstetrics & Gynecology
DX: Z34.90 Encounter for supervision of normal pregnancy, unspecified, unspecified trimester (principal); Z3A.20 20 weeks gestation of pregnancy
CPT/HCPCS: 76811

== ENCOUNTER 2022-09-14 17:46 | Observation (INO) | payer MEDICAID, SELFPAY ==
[2022-09-14] VITALS (10 sets, daily range): BP systolic 99–143; BP diastolic 66–85; PULSE 79–107; RESP 16–20; TEMP 36.7–36.8; O2SAT 97–100; BMI 21.2
[2022-09-14 16:33] LABS: Fetal Membrane Rupture (Rapid) Negative (Negative)
[2022-09-14 16:49] LABS: Fetal Fibronectin (Rapid) Negative (Negative)
[2022-09-14 17:06] LABS: Microscopic, Urine URINE MICROSCOPIC (MICROSCOPIC)
[2022-09-14 17:09] LABS: Appearance,Urine CLEAR (Clear); Bilirubin,Urine Negative (Negative); Blood, Urine Negative (Negative); Color,Urine STRAW (Yellow); Glucose,Urine (UA) Negative (Negative); Ketones,Urine Negative (Negative); Leukocyte Esterase,Urine 1+ (Negative); Nitrate,Urine Negative (Negative); Protein,Urine Negative (Negative); Specific Gravity, Urine <= 1.005 (1.005-1.030); Urobilinogen,Urine 0.2 EU/dl (0.2)
[2022-09-14 17:14] LABS: Magnesium 1.6 mg/dl (1.6-2.3)
[2022-09-14 17:21] LABS: Amphetamine/Metha Screen,Urine Negative ng/ml (<1000); Benzodiazepines Screen,Urine Negative ng/ml (<200)
[2022-09-14 17:22] LABS: Barbiturates Screen,Urine Negative ng/ml (<200); Methadone Screen,Urine Positive ng/ml (<300)
[2022-09-14 17:23] LABS: Cannabinoid Screen,Urine Positive ng/ml (<50)
[2022-09-14 17:24] LABS: Cocaine Screen,Urine Negative ng/ml (<300); Opiate Screen,Urine Negative ng/ml (<300)
[2022-09-14 17:25] LABS: Phencyclidine Screen,Urine Negative ng/ml (<25)
[2022-09-14 17:32] LABS: Bacteria,Urine Trace /lpf; RBC,Urine Occasional #/hpf (0-3); Squamous Epithelial Cell,Urine Occasional #/hpf (0-5); WBC,Urine Occasional #/hpf (0-3); Yeast,Urine Occasional /lpf
--- NOTE | 2022-09-14 18:20 | EXP.HP ---
History of Present Illness *Admission Date: 09/14/22 *Reason for visit:: labor *History of present illness: 37 yo @ 34 08/20 Routine visit today included NST because of AMA and methadone dependence NST was reactive, but tocometer showed contracetions q4 hours Cervix 3cm on exam and she was admitted for tocolysis and steroids [facility] Disclaimer: The information contained in this section may have been updated after the patient was seen, as this information can be updated by other users. Medical History Endometriosis History of hemorrhage Low forceps delivery of first Methadone maintenance treatment affecting Tobacco abuse Surgical History History of dilation and curettage Status post left oophorectomy Social History Smoking Status: Current every day smoker tobacco type: cigarettes packs per day: 1 alcohol intake: never substance use type: former substance user, marijuana, heroin and opiates current occupational status: employed Travel in the last 8 weeks: None household members: children housing: house current occupation: [employer] current occupational exposures/hazards: No Review of Systems Constitutional Constitutional: Reports system reviewed and no additional complaints, except as documented and Denies headache(s) ENT Ears, Nose, Mouth, and Throat: Denies headache(s) *Genitourinary Genitourinary: Denies abnormal vaginal bleeding Comments: + contractions *Neurologic Neurologic: Denies headache(s) and Denies other visual disturbances Meds Home Medications and Allergies Home Medications Medication Instructions Recorded Confirmed Type PNV 153-FA 400 mcg-om3 35 mg-dha tab PO 03/07/22 09/14/22 History 25 mg-epa 5 mg-fish oil chew tablet ( Gummies) doxylamine succinate 25 mg tablet 25 mg PO HS PRN 03/28/22 09/14/22 History (Unisom (doxylamine)) pyridoxine (vitamin B6) 25 mg 25 mg PO DAILY 03/28/22 09/14/22 History tablet methadone 10 mg tablet 90 mg PO DAILY opiod withdrawal 08/07/22 09/14/22 History New Prescriptions to Start Prescriptions: Allergies Allergy/AdvReac Type Severity Reaction Status Date / Time sulfamethoxazole Allergy Verified 09/14/22 13:55 [From Bactrim] trimethoprim [From Bactrim] Allergy Verified 09/14/22 13:55 Exam Data for Last 24 hours Vital signs and Labs for Last 24 Hours: Laboratory Results - last 24 hr 09/14/22 16:10: Membrane Rupture Negative, Fibronectin Negative 09/14/22 16:42: Urine Color Straw, Urine Appearance Clear, Urine pH 7.0, Ur Specific [place] <= 1.005, Urine Protein Negative, Urine Glucose (UA) Negative, Urine Ketones Negative, Urine Blood Negative, Urine Nitrate Negative, Urine Bilirubin Negative, Urine Urobilinogen 0.2, Ur Leukocyte Esterase 1+ A, Urine RBC Occasional, Urine WBC Occasional, Ur Squamous Epith Cells Occasional, Urine Bacteria Trace, Urine Yeast Occasional 09/14/22 16:42: Urine Opiates Screen Negative, Urine Methadone Screen Positive H, Ur Barbituates Screen Negative, Ur Phencyclidine Scrn Negative, Ur Amphetamines Screen Negative, U Benzodiazepines Scrn Negative, Urine Cocaine Screen Negative, U Marijuana (THC) Screen Positive H 09/14/22 17:00: Magnesium 1.6 I & O for Last 24 hours: Intake & Output 09/12/22 09/13/22 09/14/22 09/15/22 11:59 11:59 11:59 11:59 Weight 128 lb Constitutional Constitutional: no acute distress *Routine HEENT Exam Head: Present normocephalic Eye: Absent conjunctival icterus or scleral injection ENT: Present mucous membranes moist *Routine Neck Exam Neck: Present supple *Routine Respiratory Exam Respiratory: Present CTA bilaterally; Absent respiratory distress *Routine Cardiovascular Exam Cardiovascular: Present RRR *Ro
[2022-09-14 20:26] LABS: Coronavirus 19, PCR Not Detected (NotDetected); Influenza A, PCR Not Detected (NotDetected); Influenza B, PCR Not Detected (NotDetected)
--- NOTE | 2022-09-14 22:30 | EXP.DC.SUM ---
General Admission date:: 09/14/22 Discharge date: 09/14/22 HPI HPI HPI: 37 yo @ 34 08/20 Routine visit today included NST because of AMA and methadone dependence NST was reactive, but tocometer showed contracetions q4 hours Cervix 3cm on exam and she was admitted for tocolysis and steroids Hospital Course Hospital Course Hospital Course: She has received 1 dose of steroids as well as ampicillin. She is on magnesium sulfate at 2 g an hour. Her nonstress test is reactive and she is having an occasional mild contraction. She has had a couple of strong contractions. On examination she has changed her cervix from 3 to 5 cm over the last 4 hours. As result of that we have elected to transfer her to [facility] since she is only 34 weeks and 5 days. I spoke to Dr. Méndez at and he will accept her in transfer. We will make arrangements for her to have an ambulance. We will send her down by ambulance to with 2 g magnesium sulfate an hour. We will send a nurse with her since she is on magnesium sulfate. Exam Data for Last 24 hours Vital signs and Labs for Last 24 Hours: Temp Pulse Resp BP Pulse Ox 98.3 F 88 17 99/66 L 100 09/14/22 20:00 09/14/22 20:00 09/14/22 21:12 09/14/22 21:12 09/14/22 20:00 Laboratory Results - last 24 hr 09/14/22 16:10: Membrane Rupture Negative, Fibronectin Negative 09/14/22 16:42: Urine Color Straw, Urine Appearance Clear, Urine pH 7.0, Ur Specific [place] <= 1.005, Urine Protein Negative, Urine Glucose (UA) Negative, Urine Ketones Negative, Urine Blood Negative, Urine Nitrate Negative, Urine Bilirubin Negative, Urine Urobilinogen 0.2, Ur Leukocyte Esterase 1+ A, Urine RBC Occasional, Urine WBC Occasional, Ur Squamous Epith Cells Occasional, Urine Bacteria Trace, Urine Yeast Occasional 09/14/22 16:42: Urine Opiates Screen Negative, Urine Methadone Screen Positive H, Ur Barbituates Screen Negative, Ur Phencyclidine Scrn Negative, Ur Amphetamines Screen Negative, U Benzodiazepines Scrn Negative, Urine Cocaine Screen Negative, U Marijuana (THC) Screen Positive H 09/14/22 17:00: Magnesium 1.6 09/14/22 20:15: SARS-CoV-2 (PCR) Not detected, Influenza A Untype (PCR) Not detected, Influenza Type B (PCR) Not detected I & O for Last 24 hours: Intake & Output 09/12/22 09/13/22 09/14/22 09/15/22 11:59 11:59 11:59 11:59 Output Total 600 / 600 Balance -600 / -600 Weight 128 lb Constitutional Constitutional: no acute distress *Routine HEENT Exam Head: Present normocephalic Results Data Completed and Pending Labs on day of discharge: Labs from last 24 hours 09/14/22 09/14/22 09/14/22 20:15 17:00 16:42 Magnesium 1.6 Urine Color Urine Appearance Urine pH Ur Specific [place] Urine Protein Urine Glucose (UA) Urine Ketones Urine Blood Urine Nitrate Urine Bilirubin Urine Urobilinogen Ur Leukocyte Esterase Urine RBC Urine WBC Ur Squamous Epith Cells Urine Bacteria Urine Yeast Membrane Rupture Urine Opiates Screen Negative Urine Methadone Screen Positive H Ur Barbituates Screen Negative Ur Phencyclidine Scrn Negative Ur Amphetamines Screen Negative U Benzodiazepines Scrn Negative Urine Cocaine Screen Negative U Marijuana (THC) Screen Positive H SARS-CoV-2 (PCR) Not detected Influenza A Untype (PCR) Not detected Influenza Type B (PCR) Not detected Fibronectin 09/14/22 09/14/22 16:42 16:10 Magnesium Urine Color Straw Urine Appearance Clear Urine pH 7.0 Ur Specific [place] <= 1.005 Urine Protein Negative Urine Glucose (UA) Negative Urine Ketones Negative Urine Blood Negative Urine Nitrate Negative Urine Bilirubin Negative Urine Urobilinogen 0.2 Ur Leukocyte Esterase 1+ A Urine RBC Occasional Urine WBC Occasional Ur Squamous Epith Cells Occasional Urine Ba
== END 2022-09-14 23:35 | disposition short-term general hospital (02) ==
LOC: OBOUT 17:48 → OB 17:48
PROVIDERS: Admitting Provider Obstetrics & Gynecology; PCP Pediatrics; Visit Provider Obstetrics & Gynecology
DX: O60.03 Preterm labor without delivery, third trimester (principal); O99.320 Drug use complicating pregnancy, unspecified trimester; O99.330 Smoking (tobacco) complicating pregnancy, unspecified trimester
CPT/HCPCS: 36415; 59025; 80305; 81001; 82731; 83735; 84112; 87086; 87636; 96360; C9803; G0378; J0290; U0003; U0005

== ENCOUNTER → 2022-09-28 16:34 | Outpatient (CLI) | payer MEDICAID, SELFPAY | PROVIDERS: Visit Provider Obstetrics & Gynecology | DX: F11.20 Opioid dependence, uncomplicated (principal); O99.320 Drug use complicating pregnancy, unspecified trimester | CPT/HCPCS: 86403 ==

== ENCOUNTER 2022-09-29 05:23 | Inpatient (IN) | payer MEDICAID, SELFPAY ==
[2022-09-29 05:31] VITALS: BMI 22.1
[2022-09-29 06:35] LABS: Coronavirus 19, PCR Not Detected (NotDetected); Influenza A, PCR Not Detected (NotDetected); Influenza B, PCR Not Detected (NotDetected)
[2022-09-29 06:36] LABS: Basophils # 0.1 K/mm3 (0-0.2); Basophils % 0.4 % (0.1-2.0); Eosinophils # 0.1 K/mm3 (0.0-0.4); Eosinophils % 0.7 % (0.1-12.0); Hematocrit 34.6 % (37.0-47.0); Lymphocytes # 3.1 K/mm3 (0.7-4.5); Lymphocytes % 24.5 % (10-50); Mean Corpuscular HGB Conc 31.8 g/dL (31.8-35.4); Mean Corpuscular Hemoglobin 29.1 pg (27.0-31.2); Mean Corpuscular Volume 91.6 fl (81-99); Mean Platelet Volume 10.9 fl (7.4-10.4); Monocytes # 0.9 K/mm3 (0.1-1.0); Neutrophils # 8.6 K/mm3 (1.8-7.8); Neutrophils % 67.5 % (37.0-80.0); Platelet Count 241 K/mm3 (142-424); Red Blood Count 3.78 M/mm3 (4.20-5.40); White Blood Count 12.8 K/mm3 (4.8-10.8)
[2022-09-29 06:37] LABS: Microscopic, Urine URINE MICROSCOPIC (MICROSCOPIC)
[2022-09-29 06:40] LABS: Appearance,Urine SL CLOUDY (Clear); Blood, Urine Negative (Negative); Color,Urine YELLOW (Yellow); Glucose,Urine (UA) Negative (Negative); Ketones,Urine Negative (Negative); Leukocyte Esterase,Urine 3+ (Negative); Nitrate,Urine Negative (Negative); PH,Urine 6.5 (5.0-8.5); Protein,Urine Negative (Negative); Specific Gravity, Urine 1.025 (1.005-1.030); Urobilinogen,Urine 0.2 EU/dl (0.2)
[2022-09-29 06:44] LABS: Bilirubin,Urine 1+ (Negative)
[2022-09-29 06:51] LABS: Amphetamine/Metha Screen,Urine Negative ng/ml (<1000); Barbiturates Screen,Urine Negative ng/ml (<200)
[2022-09-29 06:52] LABS: Benzodiazepines Screen,Urine Negative ng/ml (<200)
[2022-09-29 06:53] LABS: Cannabinoid Screen,Urine Positive ng/ml (<50); Cocaine Screen,Urine Negative ng/ml (<300)
[2022-09-29 06:54] LABS: Methadone Screen,Urine Positive ng/ml (<300); Opiate Screen,Urine Negative ng/ml (<300)
[2022-09-29 06:55] LABS: Phencyclidine Screen,Urine Negative ng/ml (<25)
[2022-09-29 06:58] LABS: Bacteria,Urine Trace /lpf; WBC,Urine 50-100 #/hpf (0-3); Yeast,Urine Occasional /lpf
--- NOTE | 2022-09-29 07:52 | P.CONPHA_ITS ---
Pharmacy Intervention Comments: MEDICATION RECONCILIATION COMPLETED ON PATIENT USING EXTERNAL FILL HISTORY FROM PHARMACY AND [facility]. -MARIA ESTHER LAMAR, NEALD
--- NOTE | 2022-09-29 07:52 | HMH.PHAINT1 ---
Pharmacy Intervention Comments: MEDICATION RECONCILIATION COMPLETED ON PATIENT USING EXTERNAL FILL HISTORY FROM PHARMACY AND [facility]. -MARIA ESTHER LAMAR, NEALD
[2022-09-29 08:08] VITALS: BP 136/70; PULSE 83; RESP 18; TEMP 36.8; O2SAT 99
--- NOTE | 2022-09-29 10:39 | P.PN_ITS ---
[facility] Disclaimer: The information contained in this section may have been updated after the patient was seen, as this information can be updated by other users. Medical History Endometriosis History of hemorrhage Low forceps delivery of first Methadone maintenance treatment affecting Tobacco abuse Surgical History History of dilation and curettage Status post left oophorectomy Family History Other No significant family history Social History Smoking Status: Current every day smoker tobacco type: cigarettes packs per day: 1 alcohol intake: never substance use type: former substance user, marijuana, heroin and opiates current occupational status: unemployed Travel in the last 8 weeks: None household members: children housing: house current occupation: Substance Abuse Specialist current occupational exposures/hazards: No do you feel safe at home: Yes victim of physical abuse: No victim of emotional abuse: No victim of sexual abuse: No [facility] Anesthesia Checklist Patient Identification Patient Identification: Arm Band and Verbal (Name & ) Structural Data Admitted From: Inpatient Planned Operative Procedure/s: Labor epidural Consent for Planned Operative Procedure(s) Verified: Yes NPO Status Verified Time NPO: 00:00 Chart Verification Results Verified: CBC and BMP Additional verifications Patient : Yes Anesthesia Reactions: No Hx Blood Transfusions: Yes Blood Transfusion Reaction: No Airway Assessment C-Spine Mobility Assessed: Yes TMJ Mobility Assessed: Yes Dentition: Good Dentition Neurological Assessment Level of Consciousness: Awake Hx Seizures: No Numbness or tingling in extremities: No Anesthesia Plan Anesthesia Risk discussed: Yes Anesthesia Plan: Verified ASA Class: II Anesthesia Type: Epidural
--- NOTE | 2022-09-29 10:40 | HMH.PROCNOTE ---
[facility] Procedure Note Date: 09/29/22 Time: 10:40 Procedure Note:: Attempted epidural placement. Unsuccessful due to patient movement and continuous contractions. Aborted epidural placement.
[2022-09-29 12:24] VITALS: BP 136/70; PULSE 83; RESP 18; TEMP 36.8; O2SAT 99; BMI 22.1
--- NOTE | 2022-09-29 14:09 | CARE MANAGER ---
Received referral on the above stated patient for Pt is in a methadone clinic, and positive for THC during Patient delivered today, infant female (Dayna Xie.) Patient is in a relationship with baby father, Maxime Xie whom she states that she does not live with but he is very involved with the baby and her. Patient lives at [facility] in [place], has for 2-3 years. This is a second child for Eneida, she has a son, Bang Mireles, whom she has custody. She plans to breast feed but supplement with bottle feeedings, she is enrolled in WIC an has help from [employer]. Eneida is enrolled in a Methadone clinic in [place] (Dr. Hernandez) she has been there for 4 years. At this time baby is showing no signs or symptoms of withdrawal, MD is planning on keeping baby to monitor. Due to + THC this case will be called in to Central Intake. Mom is most appropriate and forthcoming with any and all aspects of care.
--- NOTE | 2022-09-29 14:52 | CARE MANAGER ---
Addendum entered by Olivia Phillips 10/06/22 13:37: Per Central Intake this case will meet for investigation. Addendum entered by [facility] 10/06/22 13:21: I have updated report to Central Intake that cord screen is positive for: fentanyl, methadone and THC. Updated ID# [id number]. Addendum entered by Olivia Glover 10/02/22 08:27: This report does NOT meet criteria for investigation per Central Intake. Original Note: called into Central Intake.
[2022-09-29 16:48] VITALS: BP 129/79; PULSE 62; RESP 18; TEMP 36.6; O2SAT 98
--- NOTE | 2022-09-29 17:01 | EXP.HP ---
History of Present Illness *Admission Date: 09/29/22 *Reason for visit:: Induction *History of present illness: 37 yo @ 36 09/20 admitted for induction of labor NIKO 10/21/22 care at [facility]-- Dr. Gibbs complicated by advanced maternal age, chronic methadone dependence and tobacco abuse She was transferred to 2 weeks ago with labor She was 5cm at time of transfer and given celestone and magnesium sulfate tocolysis She was ultimaely discharged home after 4 days Contractions have been irregular since she was discharged, but are getting more intense She is concerned about having a precipitous delivery at home because she had an emergency hemorrhage with her last delivery that required operative intervention She is 2 weeks out from the course of steroids She was scheduled for induction of labor but showed up in active labor, with change in cervical exam to 6cm PFSH PFS Disclaimer: The information contained in this section may have been updated after the patient was seen, as this information can be updated by other users. Medical History (Updated 09/29/22 @ 17:33 by Ramona Gibbs MD) Endometriosis History of hemorrhage History of hemorrhage Low forceps delivery of first Methadone maintenance treatment affecting Tobacco abuse Surgical History History of dilation and curettage Status post left oophorectomy Family History Other No significant family history Social History (Updated 09/29/22 @ 12:08 by George Mancia RN) Smoking Status: Current every day smoker tobacco type: cigarettes packs per day: 1 alcohol intake: never substance use type: former substance user, marijuana, heroin and opiates current occupational status: employed Travel in the last 8 weeks: None household members: children housing: house current occupation: [employer] current occupational exposures/hazards: No do you feel safe at home: Yes victim of physical abuse: No victim of emotional abuse: No victim of sexual abuse: No Review of Systems Constitutional Constitutional: Reports system reviewed and no additional complaints, except as documented and Denies headache(s) ENT Ears, Nose, Mouth, and Throat: Denies headache(s) *Genitourinary Genitourinary: Denies abnormal vaginal bleeding *Neurologic Neurologic: Denies headache(s) and Denies other visual disturbances Meds Home Medications and Allergies Home Medications Medication Instructions Recorded Confirmed Type PNV 153-FA 400 mcg-om3 35 mg-dha 2 tab PO DAILY Supplement 03/07/22 09/29/22 History 25 mg-epa 5 mg-fish oil chew tablet ( Gummies) methadone 10 mg tablet 90 mg PO DAILY opiod withdrawal 08/07/22 09/29/22 History cetirizine 10 mg tablet (Zyrtec) 10 mg PO DAILY Allergy symptoms 09/14/22 09/29/22 History fluticasone propionate 50 2 spray intranasal DAILY Allergy 09/14/22 09/29/22 History mcg/actuation nasal symptoms spray,suspension ondansetron 4 mg disintegrating 4 mg PO Q6HP PRN Nausea And 09/29/22 09/29/22 History tablet Vomiting New Prescriptions to Start Prescriptions: Allergies Allergy/AdvReac Type Severity Reaction Status Date / Time sulfamethoxazole Allergy Verified 09/28/22 13:14 [From Bactrim] trimethoprim [From Bactrim] Allergy Verified 09/28/22 13:14 Exam Data for Last 24 hours Vital signs and Labs for Last 24 Hours: Temp Pulse Resp BP Pulse Ox 98.3 F 83 18 136/70 99 09/29/22 12:24 09/29/22 12:24 09/29/22 12:24 09/29/22 12:24 09/29/22 12:24 Laboratory Results - last 24 hr 09/29/22 05:45: Urine Color Yellow, Urine Appearance Sl cloudy, Urine pH 6.5, Ur Specific [place] 1.025, Urine Protein Negative, Urine Glucose (UA) Negative, Urine Ketones Negative, Urine Blood Negative, Urine Nitrate Negative, U
--- NOTE | 2022-09-29 17:51 | EXP.DN ---
Delivery Note Delivery Date:: 09/29/22 Delivery Time:: 10:36 Anesthesia Type: None Was labor medically induced?: Yes Infant delivered prior to 39 weeks?: Yes Justification for early elective delivery:: Active Labor and Other (advanced cervical dilation) Infant Gender: Female at 1 minute: 7 at 5 minutes: 9 Delivery Procedure:: Spontaneous vaginal delivery of live born female over intact perineum. Delivery uncomplicated No nuchal cord present No shoulder dystocia with delivery Infant taken to radiant warmer immediately after delivery, with standard nursing assessment performed Infant Apgars: 7 & 9 Placenta spontaneously expressed and examined; noted to be complete/intact. Vulva, vagina, and cervix inspected; shallow right labial laceration present but no repair needed EBL: 300 cc All sponge/needle/instrument counts correct at conclusion of procedure Placental Delivery Description: Spontaneous
[2022-09-29 20:05] VITALS: BP 127/74; PULSE 70; RESP 17; TEMP 36.6; O2SAT 99
[2022-09-30 04:10] VITALS: BP 147/66; PULSE 75; RESP 18; TEMP 36.6
[2022-09-30 07:45] LABS: Hematocrit 29.8 % (37.0-47.0); Hemoglobin 9.5 g/dL (12.2-16.2)
[2022-09-30 08:00] VITALS: BP 123/59; PULSE 88; RESP 16; TEMP 36.8; O2SAT 98
--- NOTE | 2022-09-30 14:20 | EXP.DC.SUM ---
General Admission date:: 09/29/22 Discharge date: 09/30/22 HPI HPI HPI: 37 yo @ 36 09/20 admitted for induction of labor NIKO 10/21/22 care at [facility]-- Dr. Gibbs complicated by advanced maternal age, chronic methadone dependence and tobacco abuse She was transferred to 2 weeks ago with labor She was 5cm at time of transfer and given celestone and magnesium sulfate tocolysis She was ultimaely discharged home after 4 days Contractions have been irregular since she was discharged, but are getting more intense She is concerned about having a precipitous delivery at home because she had an emergency hemorrhage with her last delivery that required operative intervention She is 2 weeks out from the course of steroids She was scheduled for induction of labor but showed up in active labor, with change in cervical exam to 6cm Hospital Course Hospital Course Hospital Course: course uneventful She is discharged on PPD #1, per maternal reqeuest will be kept inpatient until 72 hours, for evaluation of possible withdrawal symptoms She is breast feeding to help with methadone withdrawal in She is doing well with no complaints She is tolerating a regular diet, ambulating and voiding without difficulty Lochia is appropriate and she is asymptomatic with [id number] anemia Hgb today is 9.5 Exam Data for Last 24 hours Vital signs and Labs for Last 24 Hours: Temp Pulse Resp BP Pulse Ox 97.9 F 75 18 147/66 H 99 09/30/22 04:10 09/30/22 04:10 09/30/22 04:10 09/30/22 04:10 09/29/22 20:05 Laboratory Results - last 24 hr 09/30/22 07:31: Hgb 9.5 L, Hct 29.8 L I & O for Last 24 hours: Intake & Output 09/28/22 09/29/22 09/30/22 10/01/22 11:59 11:59 11:59 11:59 Weight 133 lb 133 lb Microbiology Reports for the Last 24 Hours: Microbiology 09/29/22 05:45 Urine,Clean Catch Urine Culture - Preliminary NO GROWTH AFTER 24 HOURS Constitutional Constitutional: no acute distress *Routine HEENT Exam Head: Present normocephalic Eye: Absent conjunctival icterus or scleral injection ENT: Present mucous membranes moist *Routine Neck Exam Neck: Present supple *Routine Respiratory Exam Respiratory: Present CTA bilaterally *Routine Cardiovascular Exam Cardiovascular: Present RRR *Routine Abdominal Exam Abdominal: Present soft; Absent tenderness or distended *Routine Rectal Exam Patient deferred: visual exam and digital exam *Routine Exam Patient deferred: external exam Comments: Fundus firm below umbilicus *Routine Extremities Exam Extremities: Present edema *Routine Neurological Exam Neurological: Present alert and oriented X3 Routine Psychiatric Exam Psychiatric: Present normal affect; Absent depressed Results Data Completed and Pending Labs on day of discharge: Labs from last 24 hours 09/30/22 07:31 Hgb 9.5 L Hct 29.8 L Preliminary micro results at discharge 09/29/22 05:45 Urine Culture - Preliminary Urine,Clean Catch NO GROWTH AFTER 24 HOURS DS: Diagnosis Discharge Diagnosis (1) 36 weeks gestation of : Status: Acute Code(s): Z3A.36 - 36 weeks gestation of (2) Advanced maternal age during : Status: Acute (3) Methadone maintenance treatment affecting : Status: Acute Code(s): O99.320 - Drug use complicating , unspecified trimester; F11.20 - Opioid dependence, uncomplicated Qualifiers: Trimester: third trimester Qualified Code(s): O99.323 - Drug use complicating , third trimester; F11.20 - Opioid dependence, uncomplicated (4) labor without delivery: Status: Acute Code(s): O60.00 - labor without delivery, unspecified trimester (5) Tobacco smoking affecting : Status: Acute Code(s): O99.330 - Smoking (tobacco) complicating pregnanc
== END 2022-09-30 15:15 | disposition home or self-care (01) | DRG 806 ==
PROVIDERS: Admitting Provider Obstetrics & Gynecology; PCP Pediatrics; Visit Provider Obstetrics & Gynecology
DX: O99.324 Drug use complicating childbirth (principal); F15.20 Other stimulant dependence, uncomplicated; Z37.0 Single live birth; O99.334 Smoking (tobacco) complicating childbirth; Z3A.36 36 weeks gestation of pregnancy; F17.210 Nicotine dependence, cigarettes, uncomplicated
CPT/HCPCS: 59409; 36415; 59025; 80305; 81001; 85014; 85018; 85025; 86403; 86850; 87086; 87636; 94761; C9803; G0283; J0290; J2405; U0003; U0005

== ENCOUNTER 2023-01-02 18:36 | Observation (INO) | payer MEDICAID, SELFPAY ==
[2023-01-02] VITALS (8 sets, daily range): BP systolic 104–137; BP diastolic 58–81; PULSE 72–111; RESP 10–18; TEMP 36.9–37.6; O2SAT 97–100; BMI 20.5; BMI 21.2
--- NOTE | 2023-01-02 18:36 | ECG_ITS ---
APPROVED REPORT Exam: Resting ECG HR:101 bpm ECG Measurements Heart Rate 101 AXES [place] 152 P 65 QRSd 74 QRS 87 QT 347 T 59 QTc 405 Conclusion SINUS TACHYCARDIA ABNORMAL RHYTHM ECG UNCONFIRMED REPORT Electronically signed by : Franklyn Scherer MD 01/02/2023 19:54:53
--- NOTE | 2023-01-02 18:44 | XR_ITS ---
PROCEDURE INFORMATION: Exam: XR Chest Exam date and time: 01/02/2023 7:17 PM Age: 37 years old Clinical indication: Sternal or substernal pain; Patient HX: Smoker; Additional info: Cp TECHNIQUE: Imaging protocol: Radiologic exam of the chest. Views: 1 view. COMPARISON: CR XR CHEST PORTABLE 02/09/2019 9:16 PM FINDINGS: Lungs: Unremarkable. No consolidation. Pleural spaces: Unremarkable. No pleural effusion. No pneumothorax. Heart/Mediastinum: Unremarkable. No cardiomegaly. Bones/joints: Unremarkable. IMPRESSION: No acute findings.
--- NOTE | 2023-01-02 19:01 | CT_ITS ---
PROCEDURE INFORMATION: Exam: CT Abdomen And Pelvis With Contrast Exam date and time: 01/02/2023 8:09 PM Age: 37 years old Clinical indication: Other: Vaginal and rectal pain; Additional info: Peritonitic exam, vaginal and rectal pain TECHNIQUE: Imaging protocol: Computed tomography of the abdomen and pelvis with contrast. Radiation optimization: All CT scans at this facility use at least one of these dose optimization techniques: automated exposure control; mA and/or kV adjustment per patient size (includes targeted exams where dose is matched to clinical indication); or iterative reconstruction. Contrast material: ISOVUE; Contrast volume: 75 ml; Contrast route: IV; REPORTING DATA: Count of CT and Cardiac NM exams in prior 12 months: This patient has received 0 known CTs and 0 known cardiac nuclear medicine studies in the 12 months prior to the current study. COMPARISON: US OB /MATERNAL DETAIL 06/02/2022 1:07 PM FINDINGS: Liver: Normal. No mass. Gallbladder and bile ducts: Normal. No calcified stones. No ductal dilation. Pancreas: Normal. No ductal dilation. Spleen: Normal. No splenomegaly. Adrenal glands: Normal. No mass. Kidneys and ureters: Normal. No hydronephrosis. Stomach and bowel: Considerable volume of stool seen within the colon. Appendix: No evidence of appendicitis. Intraperitoneal space: Small volume of pelvic free fluid. Vasculature: Unremarkable. No abdominal aortic aneurysm. Lymph nodes: Unremarkable. No enlarged lymph nodes. Urinary bladder: Unremarkable as visualized. Reproductive: Unremarkable as visualized. Bones/joints: Unremarkable. No acute fracture. Soft tissues: Rectus diastasis. Small bowel loops protrude through the area of diastasis. No hernia. IMPRESSION: 1. Rectus diastasis with protrusion of non strangulated small bowel into the area of diastasis. 2. Minor nonspecific pelvic free fluid. 3. Constipation.
--- NOTE | 2023-01-02 19:01 | CT_ITS ---
PROCEDURE INFORMATION: Exam: CTA Chest With Contrast Exam date and time: 01/02/2023 8:09 PM Age: 37 years old Clinical indication: Shortness of breath; Additional info: SOA, tachycardia, recent post- TECHNIQUE: Imaging protocol: Computed tomographic angiography of the chest with contrast. Exam focused on the arteries. 3D rendering (Not supervised by radiologist): MIP and/or 3D reconstructed images were created by the technologist. Radiation optimization: All CT scans at this facility use at least one of these dose optimization techniques: automated exposure control; mA and/or kV adjustment per patient size (includes targeted exams where dose is matched to clinical indication); or iterative reconstruction. Contrast material: ISOVUE; Contrast volume: 75 ml; Contrast route: INTRAVENOUS (IV); REPORTING DATA: Count of CT and Cardiac NM exams in prior 12 months: This patient has received 0 known CTs and 0 known cardiac nuclear medicine studies in the 12 months prior to the current study. COMPARISON: CR XR CHEST PORTABLE 01/02/2023 7:17 PM FINDINGS: Pulmonary arteries: Normal. No pulmonary emboli. Aorta: Unremarkable. No aortic aneurysm. No aortic dissection. Lungs: Unremarkable. No consolidation. No masses. Pleural spaces: Unremarkable. No pneumothorax. No pleural effusion. Heart: Unremarkable. No cardiomegaly. No pericardial effusion. Lymph nodes: Unremarkable. No enlarged lymph nodes. Bones/joints: Unremarkable. No acute fracture. Soft tissues: Unremarkable. IMPRESSION: No acute findings.
[2023-01-02 19:20] LABS: Basophils % 0.3 % (0.1-2.0); Eosinophils # 0.1 K/mm3 (0.0-0.4); Eosinophils % 0.6 % (0.1-12.0); Hematocrit 38.2 % (37.0-47.0); Lymphocytes # 2.7 K/mm3 (0.7-4.5); Lymphocytes % 22.3 % (10-50); Mean Corpuscular HGB Conc 31.3 g/dL (31.8-35.4); Mean Corpuscular Hemoglobin 28.5 pg (27.0-31.2); Mean Corpuscular Volume 90.8 fl (81-99); Mean Platelet Volume 8.1 fl (7.4-10.4); Monocytes # 0.9 K/mm3 (0.1-1.0); Monocytes % 7.7 % (1.7-9.3); Neutrophils # 8.4 K/mm3 (1.8-7.8); Platelet Count 252 K/mm3 (142-424); Red Blood Count 4.21 M/mm3 (4.20-5.40); Red Cell Distribution Width 14.9 % (11.5-17.5); White Blood Count 12.2 K/mm3 (4.8-10.8)
--- NOTE | 2023-01-02 19:24 | HMH.EDGENADL ---
Discharge Plan Disposition Patient Disposition: Admitted Chief Complaint: Abdominal Pain Clinical Impressions Clinical Impression: Incarcerated hernia, Incarcerated ventral hernia, Intractable abdominal pain Discharge ED Provider: Pro Brooke General Adult HPI General Chief complaint: Abdominal Pain Stated complaint: CHEST PAIN Time Seen by Provider: 01/02/23 18:39 Mode of Arrival: Wheelchair Source of Information: Patient Limitations: No Limitations Description of Symptoms (Recalled from ER Triage Doc. by RN): Pt reports lower abd pain, vaginal and rectal area pressure that began yesterday. Pt reports chest tightness intermittent that began lastnight. Pt reports currently on menstrual period, states first day was 3 days ago. Reports heavy bleeding began yesterday. Pt also reports dizziness at times. Pt reports fever lastnight, states 100.7 History of Present Illness HPI narrative: This is a 37-year-old female with history of endometriosis status post oophorectomy, September 28 presenting with multiple complaints. Patient states that she started having chest tightness and abdominal pain that started 2 days prior to arrival on 12/31. 1 day prior to arrival, got much worse. She had lightheadedness, chest pressure that did not radiate, shortness of breath, and lower abdominal/pelvic/rectal pain. Is currently on her period, started menstrual period 4 days prior to arrival, is normal for her saturating less than 1 pad per hour at this point. No other vaginal discharge. Has mild dysuria without hematuria. She states abdominal pain is persistent, feels like labor, not made better worse by anything in particular. Related Data Home Medications Medication Instructions Recorded Confirmed PNV 153-FA 400 mcg-om3 35 mg-dha 2 tab PO DAILY Supplement 03/07/22 01/02/23 25 mg-epa 5 mg-fish oil chew tablet ( Gummies) methadone 10 mg tablet 90 mg PO DAILY opiod withdrawal 08/07/22 01/02/23 Allergies Allergy/AdvReac Type Severity Reaction Status Date / Time sulfamethoxazole Allergy Verified 09/28/22 13:14 [From Bactrim] trimethoprim [From Bactrim] Allergy Verified 09/28/22 13:14 [facility] Disclaimer: The information contained in this section may have been updated after the patient was seen, as this information can be updated by other users. Medical History (Updated 01/02/23 @ 22:31 by Pro Brooke MD) Endometriosis History of hemorrhage History of hemorrhage Low forceps delivery of first Methadone maintenance treatment affecting Tobacco abuse Surgical History History of dilation and curettage Status post left oophorectomy Family History Other No significant family history Social History (Updated 09/29/22 @ 12:08 by George Mancia RN) Smoking Status: Current every day smoker tobacco type: cigarettes packs per day: 1 alcohol intake: never substance use type: former substance user, marijuana, heroin and opiates current occupational status: employed Travel in the last 8 weeks: None household members: children housing: house current occupation: [employer] current occupational exposures/hazards: No do you feel safe at home: Yes victim of physical abuse: No victim of emotional abuse: No victim of sexual abuse: No ROS Obtained: Yes All systems reviewed & no additional complaints except as documented Physical Exam General General appearance: alert, in distress and other ( ) Head Head exam: atraumatic and normocephalic Eye Eye exam: Present normal appearance, PERRL and EOMI ENT ENT exam: Present mucous membranes moist Neck Neck exam: Present normal inspection, full ROM and trachea midline Respiratory Respiratory exam: Present normal lung sounds bilaterally; Absent respiratory distress, wheezes, stri
[2023-01-02 19:25] LABS: Alanine Aminotransferase 19 U/L (12-78); Albumin Level 4.3 g/dl (3.5-5.0); Albumin/Globulin Ratio 1.3 (1.1-1.8); Alkaline Phosphatase 78 U/L (38-126); Anion Gap 11.5 mEq/L (5-15); Aspartate Amino Transferase 29 U/L (14-36); Bilirubin,Total 0.7 mg/dl (0.2-1.3); Blood Urea Nitrogen 8 mg/dl (7-17); Carbon Dioxide 28 mmol/L (22.0-30.0); Chloride 101 mmol/L (98-107); Creatinine Clearance Estimated 95 mL/min (50-200); Estimated Glomerular Filt Rate 94 ml/min (>60); GFR (African American) 114 ML/MIN (>60); Globulin 3.2 g/dL (1.3-3.2); Glucose 107 mg/dl (74-100); Lipase 12 U/L (23-300); Potassium 3.5 mmoL/L (3.5-5.1); Sodium 137 mmol/L (136-145); Total Protein,Serum 7.5 g/dl (6.3-8.2)
[2023-01-02 19:31] LABS: D-Dimer 0.92 ug/mL (0.0-0.5)
[2023-01-02 19:45] LABS: HCG,Quantitative < 2 mIU/ml (0-5.42); Troponin I < 0.01 ng/ml (0.00-0.034)
[2023-01-02 19:51] LABS: Microscopic, Urine URINE MICROSCOPIC (MICROSCOPIC)
[2023-01-02 19:52] LABS: Appearance,Urine CLEAR (Clear); Bilirubin,Urine Negative (Negative); Blood, Urine 3+ (Negative); Color,Urine YELLOW (Yellow); Glucose,Urine (UA) Negative (Negative); Ketones,Urine Negative (Negative); Leukocyte Esterase,Urine Negative (Negative); Nitrate,Urine Negative (Negative); Protein,Urine Negative (Negative)
--- NOTE | 2023-01-02 20:00 | PC.NURSE ---
pt up to bathroom, reports minimal vaginal bleeding. denies any needs.
--- NOTE | 2023-01-02 20:15 | PC.NURSE ---
patient back from radiology
[2023-01-02 21:15] LABS: RBC,Urine 20-50 #/hpf (0-3)
[2023-01-02 22:02] LABS: Lactic Acid < 0.5 mmol/L (0.7-2.1)
--- NOTE | 2023-01-02 22:06 | PC.NURSE ---
notified house director of admission
--- NOTE | 2023-01-02 22:10 | PC.NURSE ---
pt aware of POC and being admitted, verbalized understanding, awaiting bed placement
[2023-01-02 22:35] LABS: Troponin I < 0.01 ng/ml (0.00-0.034)
--- NOTE | 2023-01-02 22:37 | PC.NURSE ---
pt arrived to floor via wheelchair @[id number]
--- NOTE | 2023-01-02 22:55 | EXP.HP ---
History of Present Illness *Admission Date: 01/02/23 *Reason for visit:: Incarcerated Hernia *History of present illness: 37-year-old female presented to the ED with c/o SOA, chest tightness, and abdominal pain for two days. PMHX of endometriosis with oophorectomy 11/14/2019, September 28 with uncomplicated delivery, prior opoiod dependence, and tobacco use. Is currently on her period, started menstrual period 4 days prior to arrival, is normal for her saturating less than 1 pad per hour at this point. No other vaginal discharge. States her bleeding is very light now. She states abdominal pain is persistent, feels like labor, not made better worse by anything in particular. The ED work up consisted of CTA imiaging of her chest and abdomen. Her Chest CTA is unremarkable. The CT of her abdomen reveals rectus diastatsis w/ protrusion of non strangulated small bowel into the diastatsis with non specific pelvic free fluid. She has a leukocytosis of 12.2 and normal lactic acid. The rest of her ED workup is unremarkable. The ED physician consulted the hospitalist team for further medical management and to have a surgical consult for the morning. The pt arrives to the medical floor hemodynamically stable without N/V/or severe abd pain. She is currently eating at the bedside. [facility] Disclaimer: The information contained in this section may have been updated after the patient was seen, as this information can be updated by other users. Medical History (Updated 01/03/23 @ 11:38 by Evgeny Pope MD) Endometriosis History of hemorrhage History of hemorrhage Low forceps delivery of first Methadone maintenance treatment affecting Tobacco abuse Surgical History History of dilation and curettage Status post left oophorectomy Family History Other No significant family history Social History (Updated 09/29/22 @ 12:08 by George Mancia RN) Smoking Status: Current every day smoker tobacco type: cigarettes packs per day: 1 alcohol intake: never substance use type: former substance user, marijuana, heroin and opiates current occupational status: employed Travel in the last 8 weeks: None household members: children housing: house current occupation: School Superintendent current occupational exposures/hazards: No do you feel safe at home: Yes victim of physical abuse: No victim of emotional abuse: No victim of sexual abuse: No Review of Systems *Cardiovascular Cardiovascular: Reports system reviewed and no additional complaints, except as documented *Respiratory Respiratory: Reports system reviewed and no additional complaints, except as documented *Gastrointestinal Gastrointestinal: Reports abdominal pain and Reports bloating *Genitourinary Genitourinary: Reports system reviewed and no additional complaints, except as documented *Musculoskeletal Musculoskeletal: Reports system reviewed and no additional complaints, except as documented *Neurologic Neurologic: Reports system reviewed and no additional complaints, except as documented Meds Home Medications and Allergies Home Medications Medication Instructions Recorded Confirmed Type PNV 153-FA 400 mcg-om3 35 mg-dha 2 tab PO DAILY Supplement 03/07/22 01/02/23 History 25 mg-epa 5 mg-fish oil chew tablet ( Gummies) methadone 10 mg tablet 90 mg PO DAILY opioid withdrawal 08/07/22 01/02/23 History New Prescriptions to Start Prescriptions: Allergies Allergy/AdvReac Type Severity Reaction Status Date / Time sulfamethoxazole Allergy Verified 09/28/22 13:14 [From Bactrim] trimethoprim [From Bactrim] Allergy Verified 09/28/22 13:14 Exam Data for Last 24 hours Vital signs and Labs for Last 24 Hours: Temp Pulse Resp BP Pulse Ox O2 Del Method 98.5 F 72 14 112/74 100 Room
[2023-01-03] VITALS: BP 112/60; PULSE 74; RESP 18; TEMP 36.9; O2SAT 98
[2023-01-03 00:49] LABS: Troponin I < 0.01 ng/ml (0.00-0.034)
[2023-01-03 04:00] VITALS: BP 103/60; PULSE 77; RESP 18; TEMP 37.1; O2SAT 95; BMI 21.2
[2023-01-03 06:36] LABS: Basophils % 0.3 % (0.1-2.0); Eosinophils # 0.2 K/mm3 (0.0-0.4); Eosinophils % 1.9 % (0.1-12.0); Lymphocytes # 2.2 K/mm3 (0.7-4.5)
[2023-01-03 06:44] LABS: Hematocrit 32.9 % (37.0-47.0); Mean Corpuscular Hemoglobin 28.3 pg (27.0-31.2); Mean Corpuscular Volume 91.2 fl (81-99); Mean Platelet Volume 8.3 fl (7.4-10.4); Monocytes # 0.8 K/mm3 (0.1-1.0); Monocytes % 8.5 % (1.7-9.3); Neutrophils # 5.9 K/mm3 (1.8-7.8); Neutrophils % 65.3 % (37.0-80.0); Platelet Count 215 K/mm3 (142-424); Red Blood Count 3.61 M/mm3 (4.20-5.40); Red Cell Distribution Width 14.9 % (11.5-17.5)
[2023-01-03 06:45] LABS: Blood Urea Nitrogen 8 mg/dl (7-17); Calcium 8.1 mg/dl (8.4-10.2); Carbon Dioxide 27 mmol/L (22.0-30.0); Chloride 109 mmol/L (98-107); Creatinine Clearance Estimated 98 mL/min (50-200); Estimated Glomerular Filt Rate 94 ml/min (>60); GFR (African American) 114 ML/MIN (>60); Glucose 89 mg/dl (74-100); Hemoglobin 10.2 g/dL (12.2-16.2); Sodium 139 mmol/L (136-145)
--- NOTE | 2023-01-03 06:46 | PC.NURSE ---
pt npo after mn pending general surgery consult. pain treated with prn morphine. a.febrile
[2023-01-03 07:21] VITALS: BP 93/52; PULSE 78; RESP 16; TEMP 36.9; O2SAT 96
--- NOTE | 2023-01-03 08:37 | HMH.PHAINT1 ---
Pharmacy Intervention Comments: HOME MEDICATION LIST VERIFIED BY CALLING LANDON ESPINOZA ON 01/03/23
--- NOTE | 2023-01-03 08:58 | EXP.SURG.CON ---
History of Present Illness *Admission Date: 01/02/23 *Reason for visit:: Incarcerated ventral hernia *History of present illness: The following is obtained from admission history and physical: 37-year-old female presented to the ED with c/o SOA, chest tightness, and abdominal pain for two days. PMHX of endometriosis with oophorectomy 11/14/2019, September 28 with uncomplicated delivery, prior opoiod dependence, and tobacco use. Is currently on her period, started menstrual period 4 days prior to arrival, is normal for her saturating less than 1 pad per hour at this point. No other vaginal discharge. States her bleeding is very light now. She states abdominal pain is persistent, feels like labor, not made better worse by anything in particular. The ED work up consisted of CTA imiaging of her chest and abdomen. Her Chest CTA is unremarkable. The CT of her abdomen reveals rectus diastatsis w/ protrusion of non strangulated small bowel into the diastatsis with non specific pelvic free fluid. She has a leukocytosis of 12.2 and normal lactic acid. The rest of her ED workup is unremarkable. The ED physician consulted the hospitalist team for further medical management and to have a surgical consult for the morning. The pt arrives to the medical floor hemodynamically stable without N/V/or severe abd pain. She is currently eating at the bedside. Patient describes a 2-day history of mostly lower abdominal and pelvic pain radiating to her perineum. She has had some minor nausea but no vomiting. She did tolerate a diet last night. She states that she has not moved her bowels for a couple of days. Sometimes her bowels are irregular as she is on methadone according to her. She often however moves her bowels once or twice a day. She did previously undergo oophorectomy laparoscopically. 4 years ago she had vaginal delivery with hemorrhage requiring exam under anesthesia and repair. 3 months ago she had uncomplicated vaginal delivery. [facility] Disclaimer: The information contained in this section may have been updated after the patient was seen, as this information can be updated by other users. Medical History (Updated 01/02/23 @ 23:08 by PUNEET Barahona) Endometriosis History of hemorrhage History of hemorrhage Low forceps delivery of first Methadone maintenance treatment affecting Tobacco abuse Surgical History History of dilation and curettage Status post left oophorectomy Family History Other No significant family history Social History (Updated 09/29/22 @ 12:08 by George Mancia RN) Smoking Status: Current every day smoker tobacco type: cigarettes packs per day: 1 alcohol intake: never substance use type: former substance user, marijuana, heroin and opiates current occupational status: employed Travel in the last 8 weeks: None household members: children housing: house current occupation: [email or web address] current occupational exposures/hazards: No do you feel safe at home: Yes victim of physical abuse: No victim of emotional abuse: No victim of sexual abuse: No Review of Systems *Neurologic Neurologic: Reports system reviewed and no additional complaints, except as documented Meds Home Medications and Allergies Home Medications Medication Instructions Recorded Confirmed Type PNV 153-FA 400 mcg-om3 35 mg-dha 2 tab PO DAILY Supplement 03/07/22 01/02/23 History 25 mg-epa 5 mg-fish oil chew tablet ( Gummies) methadone 10 mg tablet 90 mg PO DAILY opioid withdrawal 08/07/22 01/02/23 History New Prescriptions to Start Prescriptions: Allergies Allergy/AdvReac Type Severity Reactio
--- NOTE | 2023-01-03 09:22 | CT_ITS ---
FINAL REPORT TECHNIQUE: After the administration of oral and intravenous contrast, axial images were obtained through the abdomen and pelvis by computed tomography. The study was performed with techniques to keep radiation dose as low as reasonably achievable, (ALARA). Individual dose reduction techniques using automated exposure control or adjustment of mA and/or kV according to the patient's size were employed. CLINICAL HISTORY: ABDOMINAL PELVIC PAIN COMPARISON: 01/02/2023 FINDINGS: Abdomen: There is scarring at the bases. The liver parenchyma is homogeneous. There is sludge or debris in the gallbladder. The spleen, pancreas, adrenals and kidneys appear unremarkable. The aorta is normal in caliber. There is no free fluid or adenopathy. Pelvis: There is abnormal mucosal thickening in the sigmoid colon and mild pericolonic inflammation best seen on images 76-82. Findings are concerning for acute infectious or inflammatory colitis. The appendix is not identified. The urinary bladder is unremarkable. There is a small amount of free fluid in the pelvis which may be physiologic. Rectus diastasis is again noted. IMPRESSION: Abnormal mucosal thickening of the sigmoid colon. Findings concerning for acute infectious or inflammatory colitis. Reviewed, Interpreted and Dictated by Duane Yan MD Transcribed by Yuliya Petersen Authenticated and [facility]
[2023-01-03 10:28] LABS: Amphetamine/Metha Screen,Urine Negative ng/ml (<1000); Barbiturates Screen,Urine Positive ng/ml (<200)
[2023-01-03 10:29] LABS: Benzodiazepines Screen,Urine Negative ng/ml (<200)
[2023-01-03 10:30] LABS: Cannabinoid Screen,Urine Positive ng/ml (<50); Cocaine Screen,Urine Negative ng/ml (<300)
[2023-01-03 10:31] LABS: Methadone Screen,Urine Positive ng/ml (<300); Opiate Screen,Urine Positive ng/ml (<300)
[2023-01-03 10:32] LABS: Phencyclidine Screen,Urine Negative ng/ml (<25)
[2023-01-03 11:04] VITALS: BP 102/55; PULSE 80; RESP 16; TEMP 37.1; O2SAT 97
--- NOTE | 2023-01-03 11:35 | EXP.ACUTE.PN ---
Subjective *Date: 01/03/23 *Time: 11:35 Interval history: Patient still having belly pain this morning. States she has not had a bowel movement over 2 days. Not passing any gas. No nausea or vomiting today. Abdomen quite tender on exam. Blood pressure stable vitals within normal range. On room air. Interested in trying something to eat. Medical Exam Vital signs and Labs for Last 24 Hours: Vital Signs Temp Pulse Pulse Resp BP BP Pulse Ox 01/03/23 11:04 98.7 F 80 16 102/55 L 97 01/03/23 09:00 01/03/23 08:00 01/03/23 07:21 98.5 F 78 16 93/52 L 96 01/03/23 07:00 01/03/23 03:00 01/03/23 04:00 98.8 F 77 18 103/60 L 95 01/03/23 01:00 01/02/23 23:30 01/03/23 00:00 98.4 F 74 18 112/60 98 01/02/23 23:00 01/02/23 22:15 98.6 F 75 18 111/58 L 100 01/02/23 22:23 98.5 F 72 14 112/74 01/02/23 21:30 98 H 15 112/81 98 01/02/23 21:00 12 104/64 L 98 01/02/23 20:30 92 H 10 L 107/62 L 98 01/02/23 19:30 102 H 13 117/60 99 01/02/23 19:00 111 H 13 114/72 99 01/02/23 18:39 99.7 F H 106 H 18 137/59 L 98 O2 Del Method 01/03/23 11:04 Room Air 01/03/23 09:00 Room Air 01/03/23 08:00 Room Air 01/03/23 07:21 Room Air 01/03/23 07:00 Room Air 01/03/23 03:00 Room Air 01/03/23 04:00 Room Air 01/03/23 01:00 Room Air 01/02/23 23:30 Room Air 01/03/23 00:00 Room Air 01/02/23 23:00 Room Air 01/02/23 22:15 Room Air 01/02/23 22:23 Room Air 01/02/23 21:30 01/02/23 21:00 01/02/23 20:30 01/02/23 19:30 01/02/23 19:00 01/02/23 18:39 Room Air Intake and Output 01/02/23 01/03/23 01/03/23 23:59 07:59 15:59 Intake Total 569 / 569 Output Total 0 / 0 0 / 0 0 / 0 Balance 0 / 0 569 / 569 0 / 569 Intake: Intake, Oral Amount 0 / 0 Intake, Total IV Amount 569 / 569 Lactated Ringers 1000ML 1,000 569 / 569 ml @ 100 mls/hr IV .Q10H [facility] Rx #:[id number] Output: Output, Urine Amount 0 / 0 0 / 0 0 / 0 Other: Number of Voids 3 Number of Unmeasured Voids 1 1 1 Weight 56.359 kg 56.359 kg Patient Weight 01/03/23 23:59 Weight 56.359 kg Laboratory Results - last 24 hr 01/02/23 18:41: WBC 12.2 H, RBC 4.21, Hgb 12.0 L, Hct 38.2, MCV 90.8, MCH 28.5, MCHC 31.3 L, RDW 14.9, Plt Count 252, MPV 8.1, Neut % (Auto) 69.0, Lymph % (Auto) 22.3, [place] % (Auto) 7.7, Eos % (Auto) 0.6, Baso % (Auto) 0.3, Neut # (Auto) 8.4 H, Lymph # (Auto) 2.7, [place] # (Auto) 0.9, Eos # (Auto) 0.1, Baso # (Auto) 0.0, D-Dimer 0.92 H, Sodium 137, Potassium 3.5, Chloride 101, Carbon Dioxide 28, Anion Gap 11.5, BUN 8, Creatinine 0.70, Estimated Creat Clear 95, Estimated GFR 94, Est GFR ( Amer) 114, Glucose 107 H, Calcium 9.0, Total Bilirubin 0.7, AST 29, ALT 19, Alkaline Phosphatase 78, Troponin I < 0.01, Total Protein 7.5, Albumin 4.3, Globulin 3.2, Albumin/Globulin Ratio 1.3, Lipase 12 L, HCG, Quant < 2 01/02/23 19:38: Urine Color Yellow, Urine Appearance Clear, Urine pH 7.0, Ur Specific [place] 1.010, Urine Protein Negative, Urine Glucose (UA) Negative, Urine Ketones Negative, Urine Blood 3+, Urine Nitrate Negative, Urine Bilirubin Negative, Urine Urobilinogen 1.0, Ur Leukocyte Esterase Negative, Urine RBC 20-50, Urine WBC None, Ur Squamous Epith Cells 3-5, Urine Bacteria None 01/02/23 21:20: Lactate < 0.5 L 01/02/23 22:05: Troponin I < 0.01 01/03/23 00:20: Troponin I < 0.01 01/03/23 05:58: WBC 9.0 D, RBC 3.61 L, Hgb 10.2 L D, Hct 32.9 L, MCV 91.2, MCH 28.3, MCHC 31.0 L, RDW 14.9, Plt Count 215, MPV 8.3, Neut % (Auto) 65.3, Lymph % (Auto) 24.0, [place] % (Auto) 8.5, Eos % (Auto) 1.9, Baso % (Auto) 0.3, Neut # (Auto) 5.9, Lymph # (Auto) 2.2, [place] # (Auto) 0.8, Eos # (Auto) 0.2, Baso # (Auto) 0.0, Sodium 139, Potassium 4.0, Chloride 109 H, Carbon Dioxide 27, Anion Gap 7.0, BUN 8, Creatinine 0.70, Estimated Creat Clear 98, Estimated GFR 94, Est GFR ( Amer) 114, Glucose 89, Calcium 8.
[2023-01-03 14:57] VITALS: BP 105/63; PULSE 81; RESP 16; TEMP 36.8; O2SAT 98
--- NOTE | 2023-01-03 18:37 | PC.NURSE ---
PT REPORTS TWO SMALL BM'S THIS SHIFT. DID DRINK SOME LIQUIDS AND EAT SOME JELLO. MEDICATED FOR PAIN AND NAUSEA PER MAR.
[2023-01-03 20:00] VITALS: BP 105/61; PULSE 85; RESP 18; TEMP 37.7; O2SAT 98
[2023-01-04] VITALS: BP 113/62; PULSE 83; RESP 16; TEMP 37; O2SAT 94
[2023-01-04 03:57] VITALS: BP 113/61; PULSE 92; RESP 16; TEMP 37.2; O2SAT 98; BMI 21.4
--- NOTE | 2023-01-04 05:42 | PC.NURSE ---
Patient has had a robel. Has complained of pain early in the shift. see MAR. has not complained of pain or nausea since. No other issue have been noted. Patient is passing gas, but has not had a BM.
[2023-01-04 06:16] LABS: Basophils % 0.1 % (0.1-2.0); Eosinophils % 0.5 % (0.1-12.0); Hematocrit 31.7 % (37.0-47.0); Lymphocytes # 1.6 K/mm3 (0.7-4.5); Lymphocytes % 17.8 % (10-50); Mean Corpuscular HGB Conc 31.6 g/dL (31.8-35.4); Mean Corpuscular Hemoglobin 28.2 pg (27.0-31.2); Mean Corpuscular Volume 89.2 fl (81-99); Mean Platelet Volume 9.3 fl (7.4-10.4); Monocytes # 0.6 K/mm3 (0.1-1.0); Monocytes % 6.9 % (1.7-9.3); Neutrophils # 6.6 K/mm3 (1.8-7.8); Neutrophils % 74.7 % (37.0-80.0); Platelet Count 214 K/mm3 (142-424); Red Blood Count 3.56 M/mm3 (4.20-5.40); Red Cell Distribution Width 14.6 % (11.5-17.5); White Blood Count 8.8 K/mm3 (4.8-10.8)
[2023-01-04 06:25] LABS: Alanine Aminotransferase 15 U/L (12-78); Albumin Level 3.2 g/dl (3.5-5.0); Albumin/Globulin Ratio 1.1 (1.1-1.8); Alkaline Phosphatase 65 U/L (38-126); Anion Gap 8.8 mEq/L (5-15); Aspartate Amino Transferase 23 U/L (14-36); Bilirubin,Total 0.3 mg/dl (0.2-1.3); Blood Urea Nitrogen 4 mg/dl (7-17); Calcium 8.5 mg/dl (8.4-10.2); Carbon Dioxide 29 mmol/L (22.0-30.0); Chloride 105 mmol/L (98-107); Creatinine Clearance Estimated 115 mL/min (50-200); Estimated Glomerular Filt Rate 112 ml/min (>60); GFR (African American) 136 ML/MIN (>60); Globulin 2.9 g/dL (1.3-3.2); Glucose 122 mg/dl (74-100); Magnesium 1.8 mg/dl (1.6-2.3); Potassium 3.8 mmoL/L (3.5-5.1); Sodium 139 mmol/L (136-145); Total Protein,Serum 6.1 g/dl (6.3-8.2)
[2023-01-04 07:05] VITALS: BP 120/61; PULSE 83; RESP 16; TEMP 36.8; O2SAT 99
--- NOTE | 2023-01-04 07:32 | EXP.SURG.PN ---
Subjective Narrative: Patient had been having pain earlier but no issues with pain or nausea overnight according to nursing record. Passing gas. CT scan with oral contrast reveals no evidence of any hernia with focal thickening of sigmoid consistent with colitis. This morning she states that she has continued to have abdominal pain. She describes swelling and edema in the perineal area. She has been unable to have any additional bowel movement. Exam Data for Last 24 hours Vital signs and Labs for Last 24 Hours: Temp Pulse Resp BP Pulse Ox O2 Del Method 98.2 F 83 16 120/61 99 Room Air 01/04/23 07:05 01/04/23 07:05 01/04/23 07:05 01/04/23 07:05 01/04/23 07:05 01/04/23 07:05 Laboratory Results - last 24 hr 01/03/23 09:57: Urine Opiates Screen Positive H, Urine Methadone Screen Positive H, Ur Barbituates Screen Positive H, Ur Phencyclidine Scrn Negative, Ur Amphetamines Screen Negative, U Benzodiazepines Scrn Negative, Urine Cocaine Screen Negative, U Marijuana (THC) Screen Positive H 01/04/23 06:05: WBC 8.8, RBC 3.56 L, Hgb 10.0 L, Hct 31.7 L, MCV 89.2, MCH 28.2, MCHC 31.6 L, RDW 14.6, Plt Count 214, MPV 9.3, Neut % (Auto) 74.7, Lymph % (Auto) 17.8, [place] % (Auto) 6.9, Eos % (Auto) 0.5, Baso % (Auto) 0.1, Neut # (Auto) 6.6, Lymph # (Auto) 1.6, [place] # (Auto) 0.6, Eos # (Auto) 0.0, Baso # (Auto) 0.0, Sodium 139, Potassium 3.8, Chloride 105, Carbon Dioxide 29, Anion Gap 8.8, BUN 4 L D, Creatinine 0.60, Estimated Creat Clear 115, Estimated GFR 112, Est GFR ( Amer) 136, Glucose 122 H, Calcium 8.5, Magnesium 1.8, Total Bilirubin 0.3, AST 23, ALT 15, Alkaline Phosphatase 65, Total Protein 6.1 L, Albumin 3.2 L D, Globulin 2.9, Albumin/Globulin Ratio 1.1 I & O for Last 24 hours: Intake & Output 09/18/23 09/19/23 09/20/23 09/21/23 11:59 11:59 11:59 11:59 Intake Total 569 / 569 2264 / 2264 Output Total 0 / 0 0 / 0 Balance 569 / 569 2264 / 2264 Weight 124 lb 4 oz 125 lb 3 oz *Routine Abdominal Exam Abdominal: Present soft Comments: Abdomen slightly distended appearing. She has diffuse sporadic tenderness in various locations to minimal palpation. Progress Note: A&P Assessment and plan (1) Incarcerated hernia: Status: Acute Assessment and plan: No hernia on imaging or exam. Pain may be secondary to constipation with secondary focal colitis. Recommend bowel regimen. May need colonoscopy in near future as outpatient. (2) Incarcerated ventral hernia: Status: Acute (3) Intractable abdominal pain: Status: Acute (4) Opioid use: Status: Acute (5) Tobacco abuse: Status: Acute
--- NOTE | 2023-01-04 07:54 | EXP.DC.SUM ---
General Admission date:: 01/02/23 HPI HPI HPI: 37-year-old female presented to the ED with c/o SOA, chest tightness, and abdominal pain for two days. PMHX of endometriosis with oophorectomy 11/14/2019, September 28 with uncomplicated delivery, prior opoiod dependence, and tobacco use. Is currently on her period, started menstrual period 4 days prior to arrival, is normal for her saturating less than 1 pad per hour at this point. No other vaginal discharge. States her bleeding is very light now. She states abdominal pain is persistent, feels like labor, not made better worse by anything in particular. The ED work up consisted of CTA imiaging of her chest and abdomen. Her Chest CTA is unremarkable. The CT of her abdomen reveals rectus diastatsis w/ protrusion of non strangulated small bowel into the diastatsis with non specific pelvic free fluid. She has a leukocytosis of 12.2 and normal lactic acid. The rest of her ED workup is unremarkable. The ED physician consulted the hospitalist team for further medical management and to have a surgical consult for the morning. The pt arrives to the medical floor hemodynamically stable without N/V/or severe abd pain. She is currently eating at the bedside. Hospital Course Hospital Course Hospital Course: 37-year-old female presented to the ED with c/o SOA, chest tightness, and abdominal pain for two days. She states abdominal pain is persistent, feels like labor, not made better worse by anything in particular. The ED work up consisted of CTA imaging of her chest and abdomen. Her Chest CTA is unremarkable. The CT of her abdomen reveals rectus diastatsis w/ protrusion of non strangulated small bowel into the diastatsis with non specific pelvic free fluid. She has a leukocytosis of 12.2 and normal lactic acid. The rest of her ED workup is unremarkable. Imaging showed no strangulation or aurelia obstruction. Responded to bowel regimen. White cell count normalized. Stable for discharge home. Problems addressed as follows: Ventral hernia Medication induced constipation INTRACTABLE ABD PAIN -The CT of her abdomen reveals rectus diastatsis w/ protrusion of non strangulated small bowel into the diastatsis with non specific pelvic free fluid. No concern for obstructions on CT of abdomen with oral contrast for aurelia obstruction. Initiated on aggressive bowel regimen after discussion with surgery. No intention or plan at this time for surgical intervention as she does not have any findings most consistent with medication induced or opiate-induced constipation. Responding to aggressive bowel regimen with multiple small bowel movements during admission and some improvement in her pain. We will continue with MiraLAX 3-4 times a day for the next 2 days to help with cleanout and docusate senna twice daily for the next 2 days. Wean to docusate senna once daily thereafter to maintain daily bowel movement. We will send [employer] to see if it is approved by insurance. If not continue with osmotic/stimulant combo as above. Stable for discharge home. OPIOID USE -Continue treatment with home methadone 90 mg daily. Suspect this is a culprit in her constipation and belly pain. Discussed potential for switching to Suboxone, patient has tried this before and failed. Commended patient on her sobriety and stability in controlling her opiate addiction. Spent 35 minutes in discharge counseling, chart review, discussion with subspecialist, documentation, and direct care with patient. Exam Data for Last 24 hours Vital signs and Labs for Last 24 Hours: Temp Pulse Resp BP Pulse Ox O2 Del Method 98.2 F 83 16 120/61 99 Room Air 01/04/23 07:05 01/04/23 07:05 01/04/23 07:05 01/04/23 07:05 01/04/23 07:05 01/04/23 07:05 Laboratory Results - last 24 hr 01/03/23 09:57: Urine Opiates Screen Positive H, Urine Methadone Screen Positive H, Ur Barbituates Screen Positive H, Ur Phencyclidine Scrn Negative, Ur Amphetamines S
[2023-01-04 08:00] VITALS: O2SAT 98
--- NOTE | 2023-01-04 09:30 | PC.NURSE ---
Pt. reports having a bowel movement.
[2023-01-04 10:53] VITALS: BP 113/63; PULSE 72; RESP 16; TEMP 36.5; O2SAT 100
--- NOTE | 2023-01-05 15:17 | CARE MANAGER ---
Attempted post-discharge phone interview, no answer and no voicemail.
--- NOTE | 2023-01-08 13:35 | CARE MANAGER ---
Called and spoke with patient regarding recent discharge. Patient states that she is doing well, has started new medication and is aware of scheduled f/u appt. No concerns at time of call.
== END 2023-01-04 12:20 | disposition home or self-care (01) ==
LOC: ER 21:45 → 2ND 22:14
PROVIDERS: Nurse Practitioner Critical Care Medicine; Surgery; Admitting Provider Internal Medicine Adolescent Medicine; Emergency Provider Emergency Medicine; PCP Internal Medicine; Visit Provider Internal Medicine Adolescent Medicine
DX: K59.03 Drug induced constipation; F11.90 Opioid use, unspecified, uncomplicated; F17.210 Nicotine dependence, cigarettes, uncomplicated; K43.9 Ventral hernia without obstruction or gangrene
CPT/HCPCS: 36415; 71045; 71275; 74177; 80048; 80053; 80305; 81001; 83605; 83690; 83735; 84484; 84702; 85025; 85378; 87040; 93005; 99285; G0378; J0131; J2405; Q9967

== ENCOUNTER 2023-04-20 13:26 | Emergency (ER) | payer MEDICAID, SELFPAY ==
[2023-04-20 13:28] VITALS: BP 161/79; PULSE 112; RESP 18; TEMP 36.6; O2SAT 99; BMI 20.5
--- NOTE | 2023-04-20 13:28 | ECG_ITS ---
APPROVED REPORT Exam: Resting ECG HR:121 bpm ECG Measurements Heart Rate 121 AXES CO 120 P 76 QRSd 77 QRS 88 QT 311 T 60 QTc 383 Conclusion SINUS TACHYCARDIA ABNORMAL RHYTHM ECG UNCONFIRMED REPORT Electronically signed by : Franklyn Scherer MD 04/21/2023 10:06:51
--- NOTE | 2023-04-20 13:40 | XR_ITS ---
FINAL REPORT CLINICAL HISTORY: CHEST PAIN COMPARISON: 01/02/2023 FINDINGS: A single portable view of the chest was obtained. The heart size and pulmonary vascularity are within normal limits. The mediastinum is within normal limits. No acute pulmonary abnormality is identified. The bony thorax is intact. IMPRESSION: No active cardiopulmonary disease. Reviewed, Interpreted and Dictated by Slim Vera III, MD Transcribed by Yuliya Petersen Authenticated and [facility]
--- NOTE | 2023-04-20 13:48 | PC.NURSE ---
rad at bs for port cxr
[2023-04-20 14:02] LABS: Basophils # 0.1 K/mm3 (0-0.2); Basophils % 1.1 % (0.1-2.0); Eosinophils # 0.3 K/mm3 (0.0-0.4); Eosinophils % 3.1 % (0.1-12.0); Hematocrit 45.6 % (37.0-47.0); Hemoglobin 14.7 g/dL (12.2-16.2); Lymphocytes # 3.1 K/mm3 (0.7-4.5); Lymphocytes % 30.5 % (10-50); Mean Corpuscular HGB Conc 32.3 g/dL (31.8-35.4); Mean Corpuscular Hemoglobin 29.6 pg (27.0-31.2); Mean Corpuscular Volume 91.7 fl (81-99); Mean Platelet Volume 8.5 fl (7.4-10.4); Monocytes # 0.6 K/mm3 (0.1-1.0); Monocytes % 6.1 % (1.7-9.3); Neutrophils # 6.1 K/mm3 (1.8-7.8); Neutrophils % 59.3 % (37.0-80.0); Platelet Count 368 K/mm3 (142-424); Red Blood Count 4.97 M/mm3 (4.20-5.40); Red Cell Distribution Width 13.9 % (11.5-17.5); White Blood Count 10.2 K/mm3 (4.8-10.8)
[2023-04-20 14:05] VITALS: BP 137/91; PULSE 97; O2SAT 96
[2023-04-20 14:08] LABS: Chloride 101 mmol/L (98-107); Sodium 138 mmol/L (136-145)
[2023-04-20 14:09] LABS: Potassium 4.2 mmoL/L (3.5-5.1)
[2023-04-20 14:11] LABS: Alanine Aminotransferase 29 U/L (12-78); Albumin Level 4.6 g/dl (3.5-5.0); Albumin/Globulin Ratio 1.3 (1.1-1.8); Alkaline Phosphatase 97 U/L (38-126); Anion Gap 11.2 mEq/L (5-15); Aspartate Amino Transferase 42 U/L (14-36); Bilirubin,Total 0.5 mg/dl (0.2-1.3); Blood Urea Nitrogen 7 mg/dl (7-17); Calcium 9.2 mg/dl (8.4-10.2); Carbon Dioxide 30 mmol/L (22.0-30.0); Creatinine Clearance Estimated 110 mL/min (50-200); Estimated Glomerular Filt Rate 112 ml/min (>60); GFR (African American) 136 ML/MIN (>60); Globulin 3.5 g/dL (1.3-3.2); Glucose 119 mg/dl (74-100); Total Protein,Serum 8.1 g/dl (6.3-8.2)
[2023-04-20 14:25] LABS: Troponin I < 0.01 ng/ml (0.00-0.034)
--- NOTE | 2023-04-20 14:27 | CT_ITS ---
FINAL REPORT CLINICAL HISTORY: cocaine use, CP rad to R neck COMPARISON: 01/02/2023 FINDINGS: Thin section axial CT images of the chest were obtained with contrast. 3D reformatted images were also obtained. This study was performed with techniques to keep radiation doses as low as reasonably achievable (ALARA). Individualized dose reduction techniques using automated exposure control or adjustment of mA and/or kV according to the patient''s size were employed. There is no evidence of pulmonary embolism. There is no evidence of thoracic aortic aneurysm or dissection. There are multiple borderline in size mediastinal nodes, nonspecific. There is no evidence of pulmonary mass or nodule. No localized inflammatory process is seen within the lungs. Limited images of the upper abdomen are unremarkable. IMPRESSION: No evidence of pulmonary embolism. Multiple borderline in size mediastinal nodes, a nonspecific finding. Reviewed, Interpreted and Dictated by Slim Vera III, MD Transcribed by Kim Montesinos Authenticated and [facility]
--- NOTE | 2023-04-20 14:27 | CT_ITS ---
FINAL REPORT TECHNIQUE: Thin-section axial CT with IV contrast supplemented with multi planar reconstruction under CT angiogram protocol was performed of the neck. This study was performed technique to keep radiation doses as low as reasonably achievable, (ALARA). NASCET criteria was utilized during interpretation. CLINICAL HISTORY: cocaine use, CP to right neck COMPARISON: None FINDINGS: Aortic arch: Arch shows no significant narrowing. Great vessel origins are widely patent. Right carotid: No significant stenosis is seen at the cervical common or internal carotid artery. Left carotid: No significant stenosis is seen at the cervical common or internal carotid artery. Vertebrals: The vertebral arteries are codominant. No significant stenosis is present. IMPRESSION: No evidence of significant stenosis or major branch occlusion. Reviewed, Interpreted and Dictated by Slim Vera III, MD Transcribed by Kim Montesinos Authenticated and [facility]
--- NOTE | 2023-04-20 14:28 | PC.NURSE ---
DR BELLO AT BEDSIDE
--- NOTE | 2023-04-20 14:28 | HMH.EDCP ---
Discharge Plan Disposition Patient Disposition: Home, Self-Care Condition: Good Prescriptions Prescriptions: New nitroglycerin 0.4 mg tablet, sublingual 0.4 mg sublingual Q5M PRN (Reason: chest pain) Qty: 10 0RF Rx Instructions: do not exceed 3 doses per episode No Action Gummies 400 mcg-35 mg- 25 mg-5 mg tablet,chewable 2 tab PO DAILY methadone 10 mg tablet 90 mg PO DAILY Rx Instructions: VERIFIED BY PHONE CALL 01/03/23 [facility] [phone] polyethylene glycol 3350 17 gram/dose powder 17 g PO Q6HP PRN (Reason: constipation) Qty: 510 0RF sennosides-docusate sodium [Stool Softener-Stimulant Laxat] 8.6-50 mg Tablet 1 tab PO BID PRN (Reason: constipation) 30 Days Qty: 60 0RF Movantik 12.5 mg tablet 12.5 mg PO DAILY 30 Days Qty: 30 0RF Rx Instructions: must be taken on empty stomach; no food 1 hr after or 2-3 hrs before dose Referrals Follow up/Referrals: Hakeem Saini MD [Staff Physician] - See instructions Bogdan Glover [Primary Care Provider] - See instructions Activity Restrictions/Add. Instructions Additional Instructions/Restrictions: Please take the nitroglycerin as needed. Please return with any new or worsening symptoms. Please follow-up with a trust administrative assistant Clinical Impressions Clinical Impression: Chest pain Qualifiers: Chest pain type: precordial pain Qualified Code(s): R07.2 - Precordial pain Discharge ED Provider: Swapnil Flores HPI <José Miguel Quispe MD - Last Filed: 04/20/23 15:39> General Chief Complaint: Chest Pain Stated Complaint: chest pain Time Seen by Provider: 04/20/23 14:00 Mode of Arrival: Ambulatory Source of Information: Spouse Limitations: No Limitations Description of Symptoms (Recalled from ER Triage Doc. by RN): PT REPORTS CHEST PRESSURE, RIGHT SIDED NECK PAIN INTERMITTENT FOR 3-4 DAYS. REPORTS OCCASIONAL SHORTNESS OF BREATH, NAUSEA AND RINGING IN HER EARS. History of Present Illness HPI narrative: Patient is a 37-year-old female with past medical history of substance abuse previously, no injection drug use, on methadone who presents emergency department for evaluation of chest pain. On New Year's patient did cocaine intranasally and has since had crushing substernal chest pain radiating to her right neck. There is associated ear ringing on the right. Due to persistent symptoms she presents here for continued evaluation. Related Data Home Medications Medication Instructions Recorded Confirmed PNV 153-FA 400 mcg-om3 35 mg-dha 2 tab PO DAILY Supplement 03/07/22 01/02/23 25 mg-epa 5 mg-fish oil chew tablet ( Gummies) methadone 10 mg tablet 90 mg PO DAILY opioid withdrawal 08/07/22 01/02/23 Previous Rx's Medication Instructions Recorded naloxegol 12.5 mg tablet (Movantik) 12.5 mg PO DAILY 30 days #30 tabs 01/04/23 polyethylene glycol 3350 17 17 g PO Q6HP PRN constipation #510 01/04/23 gram/dose oral powder grams sennosides 8.6 mg-docusate sodium 1 tab PO BID PRN constipation 30 01/04/23 50 mg tablet (Stool days #60 tabs Softener-Stimulant Laxative) nitroglycerin 0.4 mg sublingual 0.4 mg sublingual Q5M PRN chest 04/20/23 tablet pain #10 tabs Allergies Allergy/AdvReac Type Severity Reaction Status Date / Time sulfamethoxazole Allergy Verified 09/28/22 13:14 [From Bactrim] trimethoprim [From Bactrim] Allergy Verified 09/28/22 13:14 PFS <José Miguel Quispe MD - Last Filed: 04/20/23 15:39> [facility] Disclaimer: The information contained in this section may have been updated after the patient was seen, as this information can be updated by other users. Medical History (Updated 04/20/23 @ 16:18 by Swapnil Flores MD) Endometriosis History of hemorrhage History of hemorrhage Low forceps delivery of first Methadone maintenance treatment affecting Tobacco abuse Surgical History History of dilation and curettage Status post left oophorectomy Family History Other No significant family history Social History (Updated 09/29/22 @ 12:08 by George Mancia RN) Smoking Status: Current every day smoker tobacco type: cigarettes packs per day: 1 alcohol intake: never substance use type: former substance user, marijuana, heroin and opiates current occupational status: employed Travel in the last 8 weeks: None household members: children housing: house current occupation: [employer] current occupational exposures/hazards: No do you feel safe at home: Yes victim of physical abuse: No victim of emotional abuse: No victim of sexual abuse: No <José Miguel Quispe MD - Last Filed: 04/20/23 15:39> ROS Obtained: Yes Systems reviewed as appropriate & no additional complaints except as documented Physical Exam <José Miguel Quispe MD - Last Filed: 04/20/23 15:39> General General appearance: alert and in no apparent distress Head Head exam: atraumatic and normocephalic Eye Eye exam: Present PERRL and EOMI ENT ENT exam: Present mucous membranes moist Neck Neck exam: Present normal inspection Chest Chest inspection: Present normal inspection and symmetric chest wall rise Respiratory Respiratory exam: Present normal lung sounds bilaterally; Absent respiratory distress Cardiovascular Cardiovascular exam: Present normal rhythm and tachycardia Abdominal Exam Abdominal exam: Present soft; Absent tenderness Extremities Exam Extremities exam: Present normal inspection Neurological Exam Neurological exam: Present alert and CN II-XII intact; Absent motor sensory deficit Psychiatric Psychiatric exam: Present normal affect Skin Skin exam: Present warm and dry HEART Score <José Miguel Quispe MD - Last Filed: 04/20/23 15:39> HEART Score HEART Score assessment performed?: Yes History (anamnesis): Highly suspicious ECG: Normal Age: <45 years Risk factors: 1-2 risk factors Troponin: </= normal limit HEART Score: 3 <Swapnil Flores MD - Last Filed: 04/21/23 00:02> HEART Score HEART Score: 3 Critical Care <José Miguel Quispe MD - Last Filed: 04/20/23 15:39> Critical Care Time Critical Care Time: No Medical Decision Making <José Miguel Quispe MD - Last Filed: 04/20/23 15:39> John Inquiry Pt receiving controlled substance: No Vital Signs Vital Signs: 04/20/23 13:28 04/20/23 14:05 04/20/23 16:00 Temperature 97.9 F Temperature Source Oral Pulse Rate 97 H 96 H Pulse Rate [Apical] 112 H Respiratory Rate 18 18 Blood Pressure 137/91 H 125/78 Blood Pressure [Right Arm] 161/79 H Blood Pressure Mean 103 Blood Pressure Mean [Right Arm] 106 Blood Pressure Source Blood Pressure Source [Right Arm] Automatic Cuff Blood Pressure Position Blood Pressure Position [Right Arm] Sitting 02 Sat by Pulse Oximetry 99 96 97 Oxygen Delivery Method Room Air 04/20/23 16:27 Temperature 97.9 F Temperature Source Pulse Rate 85 Pulse Rate [Apical] Respiratory Rate 16 Blood Pressure 125/78 Blood Pressure [Right Arm] Blood Pressure Mean Blood Pressure Mean [Right Arm] Blood Pressure Source Automatic Cuff Blood Pressure Source [Right Arm] Blood Pressure Position Sitting Blood Pressure Position [Right Arm] 02 Sat by Pulse Oximetry Oxygen Delivery Method Room Air Lab Data Labs: Lab Results 04/20/23 13:34: WBC 10.2, RBC 4.97, Hgb 14.7, Hct 45.6, MCV 91.7, MCH 29.6, MCHC 32.3, RDW 13.9, Plt Count 368, MPV 8.5, Neut % (Auto) 59.3, Lymph % (Auto) 30.5, [place] % (Auto) 6.1, Eos % (Auto) 3.1, Baso % (Auto) 1.1, Neut # (Auto) 6.1, Lymph # (Auto) 3.1, [place] # (Auto) 0.6, Eos # (Auto) 0.3, Baso # (Auto) 0.1, Serum HCG, Qual Negative 04/20/23 13:40: Sodium 138, Potassium 4.2, Chloride 101, Carbon Dioxide 30, Anion Gap 11.2, BUN 7, Creatinine 0.60, Estimated Creat Clear 110, Estimated GFR 112, Est GFR ( Amer) 136, Glucose 119 H, Calcium 9.2, Total Bilirubin 0.5, AST 42 H, ALT 29, Alkaline Phosphatase 97, Troponin I < 0.01, Total Protein 8.1 D, Albumin 4.6, Globulin 3.5 H, Albumin/Globulin Ratio 1.3 04/20/23 13:34 04/20/23 13:40 Response Orders (Tests/Meds): ED MEDICATIONS Discontinued Medications Generic Name Dose Route Start Last Admin Trade Name Freq PRN Reason Stop Dose Admin Iopamidol 180 ml 04/20/23 15:12 04/20/23 15:13 Iopamidol-370 (76%);100ml Bottle IV 04/20/23 15:13 180 ml ONCE ONE Administration Sodium Chloride 10 ml 04/20/23 13:40 Sodium Chloride 0.9% 10ml Flush Syringe IV 05/20/23 13:39 NEEDED PRN Maintain IV Site Sodium Chloride 50 ml 04/20/23 15:12 04/20/23 15:13 0.9 % Sodium Chloride 50 Ml Vial IV 04/20/23 15:13 50 ml ONCE ONE Administration Sodium Chloride 10 ml 04/20/23 15:12 04/20/23 15:13 Sodium Chloride 0.9% 10ml Syr (Rad Only) IV 04/20/23 15:13 10 ml ONCE ONE Administration ORDERS Category Date Time Status CT angio chest - dissection Stat Cat Scan 04/20/23 14:[address] angio neck Stat Cat Scan 04/20/23 14:27 Completed XR chest portable Stat Exams 04/20/23 13:40 Completed Complete Blood Count Auto Diff Stat Lab 04/20/23 13:34 Completed Comprehensive Metabolic Panel Stat Lab 04/20/23 13:40 Completed Serum [HCG Qualitative, Serum] Stat Lab 04/20/23 13:34 Completed Troponin I Stat Lab 04/20/23 13:40 Completed ECG initial [place] Routine Y 04/20/23 13:28 Completed ECG Data Tracing #1: ECG Narrative: Independently interpreted by me, rate is 121, rhythm is regular, axis is normal, no ST elevation in anatomical contiguous leads, sinus tachycardia, QTc 383. MDM Narrative Medical Decision Narrative: In summary patient is a 37-year-old female with past medical history described above who presents emergency department for evaluation of chest pain in the setting of cocaine use. Patient is hemodynamically stable and nontoxic-appearing upon arrival, afebrile. Differential diagnosis includes Prinzmetal's angina, aortic dissection, ACS, among others. Workup will be conducted with hematologic labs, CTA of the chest and neck, troponin, EKG. Initial inventions include IV Tylenol. Initial workup reviewed by me, hematologic labs are nonactionable, initial troponin below detectable limit. CTA chest informally interpreted by me, no large dissection flap identified per my interpretation. Formal CTA reads were pending at time of transfer of care to the oncoming physician, Dr. Flores. <Swapnil Flores MD - Last Filed: 04/21/23 00:02> Vital Signs Vital Signs: 04/20/23 13:28 04/20/23 14:05 04/20/23 16:00 Temperature 97.9 F Temperature Source Oral Pulse Rate 97 H 96 H Pulse Rate [Apical] 112 H Respiratory Rate 18 18 Blood Pressure 137/91 H 125/78 Blood Pressure [Right Arm] 161/79 H Blood Pressure Mean 103 Blood Pressure Mean [Right Arm] 106 Blood Pressure Source Blood Pressure Source [Right Arm] Automatic Cuff Blood Pressure Position Blood Pressure Position [Right Arm] Sitting 02 Sat by Pulse Oximetry 99 96 97 Oxygen Delivery Method Room Air 04/20/23 16:27 Temperature 97.9 F Temperature Source Pulse Rate 85 Pulse Rate [Apical] Respiratory Rate 16 Blood Pressure 125/78 Blood Pressure [Right Arm] Blood Pressure Mean Blood Pressure Mean [Right Arm] Blood Pressure Source Automatic Cuff Blood Pressure Source [Right Arm] Blood Pressure Position Sitting Blood Pressure Position [Right Arm] 02 Sat by Pulse Oximetry Oxygen Delivery Method Room Air Lab Data Labs: Lab Results 04/20/23 13:34: WBC 10.2, RBC 4.97, Hgb 14.7, Hct 45.6, MCV 91.7, MCH 29.6, MCHC 32.3, RDW 13.9, Plt Count 368, MPV 8.5, Neut % (Auto) 59.3, Lymph % (Auto) 30.5, [place] % (Auto) 6.1, Eos % (Auto) 3.1, Baso % (Auto) 1.1, Neut # (Auto) 6.1, Lymph # (Auto) 3.1, [place] # (Auto) 0.6, Eos # (Auto) 0.3, Baso # (Auto) 0.1, Serum HCG, Qual Negative 04/20/23 13:40: Sodium 138, Potassium 4.2, Chloride 101, Carbon Dioxide 30, Anion Gap 11.2, BUN 7, Creatinine 0.60, Estimated Creat Clear 110, Estimated GFR 112, Est GFR ( Amer) 136, Glucose 119 H, Calcium 9.2, Total Bilirubin 0.5, AST 42 H, ALT 29, Alkaline Phosphatase 97, Troponin I < 0.01, Total Protein 8.1 D, Albumin 4.6, Globulin 3.5 H, Albumin/Globulin Ratio 1.3 Response Orders (Tests/Meds): ED MEDICATIONS Discontinued Medications Generic Name Dose Route Start Last Admin Trade Name Emma PRN Reason Stop Dose Admin Iopamidol 180 ml 04/20/23 15:12 04/20/23 15:13 Iopamidol-370 (76%);100ml Bottle IV 04/20/23 15:13 180 ml ONCE ONE Administration Sodium Chloride 10 ml 04/20/23 13:40 Sodium Chloride 0.9% 10ml Flush Syringe IV 05/20/23 13:39 NEEDED PRN Maintain IV Site Sodium Chloride 50 ml 04/20/23 15:12 04/20/23 15:13 0.9 % Sodium Chloride 50 Ml Vial IV 04/20/23 15:13 50 ml ONCE ONE Administration Sodium Chloride 10 ml 04/20/23 15:12 04/20/23 15:13 Sodium Chloride 0.9% 10ml Syr (Rad Only) IV 04/20/23 15:13 10 ml ONCE ONE Administration ORDERS Category Date Time Status CT angio chest - dissection Stat Cat Scan 04/20/23 14:[address] angio neck Stat Cat Scan 04/20/23 14:27 Completed XR chest portable Stat Exams 04/20/23 13:40 Completed Complete Blood Count Auto Diff Stat Lab 04/20/23 13:34 Completed Comprehensive Metabolic Panel Stat Lab 04/20/23 13:40 Completed Serum [HCG Qualitative, Serum] Stat Lab 04/20/23 13:34 Completed Troponin I Stat Lab 04/20/23 13:40 Completed ECG initial [place] Routine Y 04/20/23 13:28 Completed MDM Narrative Medical Decision Narrative: In summary patient is a 37-year-old female with past medical history described above who presents emergency department for evaluation of chest pain in the setting of cocaine use. Patient is hemodynamically stable and nontoxic-appearing upon arrival, afebrile. Differential diagnosis includes Prinzmetal's angina, aortic dissection, ACS, among others. Workup will be conducted with hematologic labs, CTA of the chest and neck, troponin, EKG. Initial inventions include IV Tylenol. Initial workup reviewed by me, hematologic labs are nonactionable, initial troponin below detectable limit. CTA chest informally interpreted by me, no large dissection flap identified per my interpretation. Formal CTA reads were pending at time of transfer of care to the oncoming physician, Dr. Flores. CTA imaging shows no acute findings. Patient reported improvement of symptoms upon repeat evaluation. It is thought that her symptoms are attributable to vasospasm in the setting of stimulant use. Patient was prescribed nitroglycerin sublingual tab, will follow-up with cardiology. She will return with any new or worsening symptoms. Return precautions were given.
--- NOTE | 2023-04-20 15:12 | PC.NURSE ---
PT RETURNED FROM CT
[2023-04-20] MEDS: SODIUM CHLORIDE 0.9% 10ML SYR (RAD ONLY) 10 ML IV (15:13)
[2023-04-20] MEDS: IOPAMIDOL-370 (76%);100ML BOTTLE 180 ML IV (15:13)
[2023-04-20] MEDS: 0.9 % SODIUM CHLORIDE 50 ML VIAL IV (15:13)
--- NOTE | 2023-04-20 15:16 | HMH.ITSTN ---
test overrode for CT scan by the Physician on a risk vs. benefit situation with this patient. Waiver for preg test signed by patient and physician.
[2023-04-20 16:00] VITALS: BP 125/78; PULSE 96; RESP 18; O2SAT 97
[2023-04-20 16:03] LABS: HCG Qualitative, Serum Negative (Negative)
[2023-04-20 16:27] VITALS: BP 125/78; PULSE 85; RESP 16; TEMP 36.6; O2SAT 98
== END 2023-04-20 16:28 | disposition home or self-care (01) ==
PROVIDERS: Emergency Medicine; Emergency Provider Emergency Medicine; PCP Pediatrics
DX: R07.2 Precordial pain (principal); M54.2 Cervicalgia; R06.02 Shortness of breath; R11.0 Nausea; F14.10 Cocaine abuse, uncomplicated; F17.210 Nicotine dependence, cigarettes, uncomplicated
CPT/HCPCS: 70498; 71045; 71275; 80053; 84484; 84703; 85025; 93005; 99285; Q9967

== ENCOUNTER 2024-12-22 16:34 | Outpatient (CLI) | payer MEDICAID, SELFPAY ==
--- OUTSIDE RECORDS SUMMARY | 2024-12-22 16:36 | XMS_ITS | Clinical Summary ---
Author Organization Healthcare Address [address] [place] [address] Care Team Providers Care [employer]eman Name Role Phone Bogdan Glover MD Primary Care Provider [phone] Allergies Active Allergy Reactions Criticality Noted Date Comments Sulfamethoxazole-Trimethop rim Other - please document in the comment field Low 02/12/2019 Medications methadone (Dolophine) 10 MG tablet Take 90 mg by mouth 1 (one) time each day. Active Active Problems Problem Noted Date Diagnosed Date labor without delivery, third trimester 09/15/2022 HTN (hypertension) 09/15/2022 Nausea and vomiting during 09/15/2022 Tobacco abuse 09/15/2022 Opioid use disorder in remission 09/15/2022 Social History Tobacco Use Types Packs/Day Years Used Date Smoking Tobacco: Every Day Cigarettes Smokeless Tobacco: Never Tobacco Cessation:Ready to Q uit: No; Counseling Given: Not Answered CAGE ASSESSMENT Answer Date Recorded Cage unable to access Not on file 09/15/2022 Cage max number of drinks Not on file 2022 Cage Beverages a week Not on file 09/15/2022 Have you ever felt you should CUT down on your d rinking? 0 09/15/2022 Have you been ANNOYED by people criticizing your drinking? 0 09/15/2022 Have you felt GUILTY about your drinking? 0 09/15/2022 Have you had a drink first t sana in the morning (E[employer]) to steady your nerves or to get rid of a hangover? 0 09/15/2022 CAGE Questionnaire Score 0 023 Comments No Sex and Gender Information Value Date Recorded Sex Assigned at Not on file Legal Sex Female 7:34 PM EDT Gender Identity Not on file Sexual Orientation Not on file Last Filed Vital Signs Vital Sign Reading Time Taken Comments Blood Pressure 129/76 09/20/2022 2:03 AM EDT Pulse 93 09/20/2022 2:03 AM EDT Temperature 36.7 C (98 F) 09/18/2022 8:21 AM EDT Respiratory Rate 18 09/20/2022 2:03 AM EDT Oxygen Saturation 99% 09/18/2022 8:21 AM EDT Inhaled Oxygen Concentration - - Weight 58.1 kg (128 lb) 09/15/2022 2:10 AM EDT Height 162.6 cm (5' 4 ) 09/15/2022 2:10 AM EDT Body Mass Index 21.97 09/15/2022 2:10 AM EDT Plan of Treatment Health Maintenance Due Date Last Done Comments [facility]-Depression Screening 1985 [facility]-HIV Screening 1985 [facility]-Hepatitis C Screening 1985 [facility]-/Child/Adol SDOH Screenings 1985 [facility]-Varicella Vaccines (2 of 2 - 2-dose childhood series) 10/30/1996 08/07/1996 [facility]-DTaP,Tdap,and Td Vaccines (2 - Tdap) 11/10/1999 11/09/1999 [facility]- SDOH Screenings 2003 [facility]-Adult SDOH Screenings 2003 [facility]-Pap Smear 2006 HPV Vaccines (1 - 3-dose SCDM series) 2012 [facility]-Cervical Cancer Screening 2015 [facility]-HPV/Cotest 2015 JUD-AYPED-75 Vaccine (4 - 2024- season) 2024 04/01/2021, 07/17/2020, 06/24/2020 [facility]-Influenza Vaccine (#1) 2024 [facility]-Zoster Vaccines (1 of 2) 2035 08/07/1996 [facility]-Hepatitis B Vaccines Completed 001, 12/08/1999, 11/09/1999 [facility]-HIB Vaccines Aged Out No longer e ligible based on patient's age to complete this topic [facility]-Hepatitis A Vaccines Aged Out No longer eligible based on patient's age to complete this topic [facility]-IPV Vaccines Aged Out No longer e ligible based on patient's age to complete this topic [facility]-Pneumococcal Vaccine: Pediatrics (0 to 5 Years) and At-Risk Patients (6 to 49 Years) Aged Out No longer eligible b ased on patient's age to complete this topic [facility]-Rotavirus Vaccines Aged Out No lo nger eligible based on patient's age to complete this topic Insurance [employer] Advance Directives * Full Code (Latest Code Status on File) Date Activated Date Inactivated Comments 09/15/2022 1:03 AM 09/18/2022 6:18 PM Question Answer Comments Patient has decision-making capacity? Yes Care Teams [employer] Relationship Specialty Start Date End Date Bogdan Glover MD [address] [place] [address] [place] [address] PCP - General 08/14/22
--- OUTSIDE RECORDS SUMMARY | 2024-12-22 16:36 | XMS_ITS | Clinical Summary ---
[facility] Address [address] [place] [address] Care Team Providers Care Retail Advertising Sales Manager Name Role Phone Bogdan Glover MD Primary Care Provider [phone] Allergies No known active allergies Medications methadone (DOLOPHINE) 10 MG tablet Take 9 tablets by mouth Daily, Active Vit-Fe Fumarate-FA ( vitamin 27-0.8) 27-0.8 MG tablet tablet Take 1 tablet by mouth Daily. Active doxylamine (UNISOM) 25 MG tablet Take 1 tablet by mouth At Night As Needed for Sleep. Active fluticasone (FLONASE) 50 MCG/ACT nasal spray 2 sprays into the nostril(s) as directed by provider Daily. 11.1 mL 1 09/08/2022 Active cetirizine (zyrTEC) 10 MG tablet Take 1 tablet by mouth Daily. 30 tablet 2 09/08/2022 Active Active Problems Problem Noted Date Diagnosed Date Fluid level behind tympanic membrane of right ea r 09/08/2022 Assessment & Plan (09/08/2022 4:04 PM EDT): ear pain that has been going on for about a month now. She reports more mostly discomfort than pain. She reports she has had the symptoms in the past. Feels some dizziness at times and ears popping. She has had issues with allergies in the past. Began to use of Flonase about a month ago without any benefit. She has not utilize any antihistamine therapy. Denies any decreased hearing. No fevers. He has at times there will be clear drainage from the ear. Physical exam with right middle ear effusion, slight bulging without erythema or perforation. -Advised continued use of daily Flonase. We will add daily Zyrtec dosing as well. History of hemorrhage, currently preg nant 09/04/2022 History of forceps delivery in prior , currently 09/04/2022 History of maternal blood transfusion, currently 09/04/2022 Opioid dependence on mainten ance agonist therapy, no symptoms 07/06/2022 07/06/2022 Antepartum multigravida of advanced maternal age 0307/06/2022 Viral syndrome 12/20/2021 Assessment & Plan (12/20/2021 12:48 PM EDT): Flu screen negative, COVID-19 testing negative. Consistent another viral illness. Symptomatic treatment, saline spray, cool-mist humidifier, Bromfed-DM as prescribed. Expected course of persisting symptoms for another few days and improving. Treatment of asthmatic component as per asthmatic diagnosis. Anemia, unspecified 12/20/2021 Generalized anxiety disorder 12/20/2021 Major depressive disorder, recurrent, moderate 0 12/20/2021 Cigarette smoker 12/20/2021 Assessment & Plan (12/20/2021 12:50 PM EDT): Ongoing smoking currently less than 1/4 pack/day. I reinforced and discussed the benefits of cessation, discussing challenges and benefits of setting a quit date. I spent 5 minutes in this discussion and she understands and will continue to pursue cessation. Other low back pain 12/20/2021 Overview (12/20/2021): CHRONIC LUMBAGO Other psychoactive substance abuse, uncomplicate d 12/20/2021 Mild intermittent asthma with exacerbation 12/20 Assessment & Plan (12/20/2021 12:48 PM EDT): Modest flare related to current viral syndrome. Prescription for Ventolin HFA and AeroChamber, use regular for the next few days, then as needed. Additional prednisone 10 mg tablet 3 tablets daily x5 days. Advised if not improving. Reassess at follow-up visit. Immunizations Immunization Administration Dates Next Due COVID-19 ([employer]) Purple Cap Monovalent 04/01/20 21,07/17/2020,06/24/2020 Hep B, Adolescent or Pediatric 06/13/2000,1999,11/09/1999 MMR 06/13/1996 Td (TDVAX) 11/09/1999 Varicella 08/07/1996 Social History Tobacco Use Types Packs/Day Years Used Date Smoking Tobacco: Every Day Cigarettes 0.3 22 Smokeless Tobacco: Never Alcohol Use Standard Drinks/Week Comments Not Currently 0 (1 standard drink = 0.6 oz pur e alcohol) VERY RARE PHQ-2 Answer Date Recorded Retired PHQ-9: Brief Depression Severity Measure Score 0 09/08/2022 Abuse Screen Answer Date Recorded Unsafe at Home or Work/School Not on file Feels Threatened by Someone? Not on file Does Anyone Keep You from Co ntacting Others or Doint Things Outside the Home? Not on file 01/26/2023 Physical Sign of Abuse Present Not on file 1 Housing Stability Answer Date Recorded Current Living Arrangements Not on file 01/14 Potentially Unsafe Housing Conditions Not on guero e 01/26/2023 Family and Community Support Answer Carlos Ablerto e Recorded Help with Day-to-Day Activities Not on file 01/26/2023 Lonely or Isolated Not on file 01/26/2023 Employment Answer Date Recorded Do you want help finding or keeping work or a charla b? Not on file 01/26/2023 Disabilities Answer Date Recorded Concentrating, Remembering, or Making Decisions Difficulty Not on file 01/26/2023 Doing Errands Independently Difficulty Not on fi le 01/26/2023 Education Answer Date Recorded Help with school or training? Not on file Preferred Language Not on file 01/26/2023 PHQ-2 Answer Date Recorded Retired PHQ-9: Brief Depression Severity Measure Score 0 09/08/2022 Comments No Sex and Gender Information Value Date Recorded Sex Assigned at Not on file Legal Sex Female 11:25 AM EDT Gender Identity Not on file Sexual Orientation Not on file Last Filed Vital Signs Vital Sign Reading Time Taken Comments Blood Pressure 118/74 09/08/2022 3:07 PM EDT Pulse 113 09/08/2022 3:07 PM EDT Temperature 36.2 C (97.2 F) 09/08/2022 3:07 PM EDT Respiratory Rate 18 09/08/2022 3:07 PM EDT Oxygen Saturation 98% 09/08/2022 3:07 PM EDT Inhaled Oxygen Concentration - - Weight 59.5 kg (131 lb 3.2 oz) 09/08/2022 3:07 P M EDT Height 160 cm (5' 3 ) 09/08/2022 3:07 PM EDT Body Mass Index 23.24 09/08/2022 3:07 PM EDT Plan of Treatment Health Maintenance Due Date Last Done Comments Annual Gynecologic Pelvic an d Breast Exam 1985 Pneumococcal Vaccine 0-49 (1 of 2 - PCV) 2004 PAP SMEAR 2006 TDAP/TD VACCINES (2 - Tdap) 11/08/2009 11/09/1999 ANNUAL PHYSICAL 12/20/2021 HEPATITIS C SCREENING 12/20/2021 COVID-19 Vaccine ( season) 2024 04/01/2021, 07/17/2020, 06/24/2020 INFLUENZA VACCINE 01/14/2025 Insurance [employer] Care Teams Retail Advertising Sales Manager Relationship Specialty Start Date End Date Bogdan Glover MD [address] [place] [address] [place] [address] PCP - General Internal Medicine 12/20/21
== END 2024-12-22 23:59 | disposition home or self-care (01) ==
LOC: LAB 16:34
PROVIDERS: PCP Pediatrics; Visit Provider Nurse Practitioner Obstetrics & Gynecology
DX: Z34.90 Encounter for supervision of normal pregnancy, unspecified, unspecified trimester (principal)
CPT/HCPCS: 36415; 84144; 84702

== ENCOUNTER 2025-01-21 15:42 | Outpatient (CLI) | payer MEDICAID, SELFPAY ==
[2025-01-21 16:13] LABS: Hematocrit 29.9 % (37.0-47.0); Hemoglobin 10.0 g/dL (12.2-16.2); Immature Granulocytes % 0.6 %; Mean Corpuscular HGB Conc 33.4 g/dL (31.8-35.4); Mean Corpuscular Hemoglobin 28.9 pg (27.0-31.2); Mean Corpuscular Volume 86.4 fl (81-99); Nucleated Red Blood Cells % 0 %; Platelet Count 239 K/mm3 (142-424); Red Blood Count 3.46 M/mm3 (4.20-5.40); Red Cell Distribution Width-SD 42.6 fL; White Blood Count 8.6 K/mm3 (4.8-10.8)
[2025-01-21 18:07] LABS: Hepatitis C Ab Qual. W/ RFX NEGATIVE (Negative)
[2025-01-22 10:29] LABS: RPR W/RFX Titers Nonreactive (Nonreactive)
[2025-01-23 09:41] LABS: Hepatitis B Surface Antigen Negative (Negative); Rubella Antibodies, IgG 1.73 index (Immune >0.99)
== END 2025-01-21 23:59 | disposition home or self-care (01) ==
LOC: LAB 15:43
PROVIDERS: PCP Pediatrics; Visit Provider Nurse Practitioner Obstetrics & Gynecology
DX: O09.299 Supervision of pregnancy with other poor reproductive or obstetric history, unspecified trimester (principal); Z3A.00 Weeks of gestation of pregnancy not specified
CPT/HCPCS: 36415; 85025; 86592; 86762; 86803; 86850; 87086; 87340; 87389

== ENCOUNTER 2025-02-04 11:21 | Outpatient (CLI) | payer MEDICAID, SELFPAY ==
--- NOTE | 2025-02-04 11:38 | US_ITS ---
PROCEDURE: US OB >= 14 WEEKS FETUS CLINICAL INDICATION: dates COMPARISON: No exams were available for comparison FINDINGS: Transabdominal sonographic images of the pelvis were obtained. The following parameters are obtained: From her established due date she is 14weeks 2days Viable fetus in the breech presentation with a right lateral placenta grade 1. The cervix measures 2.78 cm in length heart rate: 124bpm bpm. Average ultrasound age 17 weeks 5 days, NIKO 07/10/2025 BPD: 18weeks 0 days HC: 17weeks 2days AC: 18weeks 0 days FL: 17weeks 2days HC/AC: 1.13 FL/BPD: 0.61 FL/AC: 0.2 Amniotic fluid: Appears normal No obvious anomalies evident. profile seen, stomach, kidneys, three-vessel cord, four chamber heart appear normal. IMPRESSION: 1. Viable fetus in the breech presentation with a right lateral placenta grade 1. 2. The fluid is within normal limits. 3. Fetus measures 17 weeks 5 days and her dates should be revised to reflect this. The new NIKO will be 07/10/2025. 4. Limited anatomical scan appears normal. 5. Suggest repeat scan in 3-4 weeks to look at the complete anatomy. Dictated by: Emerson Reddy MD 02/04/2025 14:53 Emerson Reddy MD in OV 02/04/2025 14:53
--- OUTSIDE RECORDS SUMMARY | 2025-02-04 12:07 | XMS_ITS | Clinical Summary ---
[facility] Address [address] [place] [address] Care Team Providers Care Food Demonstrator Name Role Phone Bogdan Glover MD Primary Care Provider [phone] Allergies No known active allergies Medications methadone [...] Immunizations Immunization Administration Dates Next Due COVID-19 ([employer]) Purple Cap Monovalent 04/01/20 21,07/17/2020,06/24/2020 Hep B, [...] 01/26/2023 Family and Community Support Answer Carlos Alberto e Recorded Help with Day-to-Day Activities Not [...] Date Last Done Comments Annual Gynecologic Pelvic and Breast Exam 1985 Pneumococcal Vaccine 0-49 (1 of 2 - PCV) 2004 PAP SMEAR 2006 TDAP/TD VACCINES (2 - Tdap) 11/08/2009 11/09/1999 ANNUAL PHYSICAL 12/20/2021 HEPATITIS C SCREENING 12/20/2021 INFLUENZA VACCINE 11/14/2024 Procedures Procedure Name Priority Date/Time Associated Diagnosis Comments SCANNED - LABS 01/21/2025 SCANNED - LABS 01/21/2025 SCANNED - LABS 01/21/2025 SCANNED - LABS 01/21/2025 SCANNED - LABS 01/21/2025 SCANNED - LABS 12/22/2024 from Last 3 Months Results * LABS SCANNED (01/21/2025) Only the most recent of6 resultswithin the time period is included. us Bogdan Glover MD LAB BLOOD ORDERABLES Final Resul t from Last [address] [facility] MEDICAID Care Teams Food Demonstrator Relationship Specialty Start Date End Date Bogdan Glover MD [address] [place] [address] PCP - General Internal Medicine 12/20/21
--- OUTSIDE RECORDS SUMMARY | 2025-02-04 12:07 | XMS_ITS | Clinical Summary ---
Author Organization [facility] Address [address] [place] [address] Care Team Providers Care Jboss Developer Name Role Phone Bogdan Glover MD Primary Care Provider [phone] Allergies Active Allergy Reactions Criticality Noted Date [...] drink first t sana in the morning (EYE-BOX BUILDER) to steady your nerves or to get [...] 2012 [facility]-Cervical Cancer Screening 2015 [facility]-HPV/Cotest 2015 [id number] Vaccine (4 - 2024- season) 2024 04/01/2021, [...] Patient has decision-making capacity? Yes Care Teams Jboss Developer Relationship Specialty Start Date End Date Bogdan Glover MD [address] [place] [address] [place] [address] PCP - General 08/14/22
== END 2025-02-04 23:59 | disposition home or self-care (01) ==
LOC: RAD 11:22
PROVIDERS: PCP Pediatrics; Visit Provider Nurse Practitioner Obstetrics & Gynecology
DX: O32.1XX0 Maternal care for breech presentation, not applicable or unspecified (principal); O09.292 Supervision of pregnancy with other poor reproductive or obstetric history, second trimester; O09.522 Supervision of elderly multigravida, second trimester; Z3A.17 17 weeks gestation of pregnancy
CPT/HCPCS: 76805

== ENCOUNTER 2025-02-12 09:15 | Outpatient (CLI) | payer MEDICAID, SELFPAY ==
[2025-02-12 20:24] LABS: Coronavirus 19, PCR Not Detected (NotDetected); Influenza A, PCR Not Detected (NotDetected); Influenza B, PCR Not Detected (NotDetected)
== END 2025-02-12 23:59 ==
LOC: LAB.DROPOF 02-16 09:16
PROVIDERS: PCP Pediatrics; Visit Provider Student in an Organized Health Care Education/Training Program
DX: J06.9 Acute upper respiratory infection, unspecified (principal)
CPT/HCPCS: 87631

== ENCOUNTER 2025-03-18 08:22 | Outpatient (CLI) | payer MEDICAID, SELFPAY ==
[2025-03-18 21:21] LABS: Coronavirus 19, PCR Not Detected (NotDetected); Influenza A, PCR Not Detected (NotDetected); Influenza B, PCR Not Detected (NotDetected)
== END 2025-03-18 23:59 ==
LOC: LAB.DROPOF 03-20 08:23
PROVIDERS: PCP Pediatrics; Visit Provider Student in an Organized Health Care Education/Training Program
DX: J06.9 Acute upper respiratory infection, unspecified (principal)
CPT/HCPCS: 87631

== ENCOUNTER 2025-04-06 12:40 | Outpatient (CLI) | payer MEDICAID, SELFPAY ==
--- OUTSIDE RECORDS SUMMARY | 2025-04-06 12:43 | XMS_ITS | Clinical Summary ---
Author Organization [facility] Address [address] [place] [address] Care Team Providers Care Front Office Supervisor Name Role Phone Bogdan Glover MD Primary Care Provider [phone] Allergies No known active allergies Medications methadone [...] if not improving. Reassess at follow-up visit. Estimated Date of Delivery Comme nts Yes 07/10/2025 Immunizations Immunization Administration Dates Next Due COVID-19 ([employer]) Purple Cap Monovalent 04/01/20 21,07/17/2020,06/24/2020 Hep B, [...] Brief Depression Severity Measure Score 0 09/08/2022 Estimated Date of Delivery Comme nts Yes 07/10/2025 Sex and Gender Information Value Date Recorded [...] 09/08/2022 3:07 PM EDT Plan of Treatment Upcoming Encounters Date Type Department Care Team (Late st Contact Info) Description 04/15/2025 10:30 AM EST Office Visit [facility] [address] [facility] [address] [place] [address] 04/15/2025 10:30 AM EST Appointment [facility] [address] [place] [address] Health Maintenance Due Date Last Done Comments Annual Gynecologic Pelvic and Breast Exam 1985 TDAP/TD VACCINES (2 - Tdap) 11/10/1999 11/09/1999 Pneumococcal Vaccine 0-49 (1 of 2 - PCV) 2004 PAP SMEAR 2006 ANNUAL PHYSICAL 12/20/2021 HEPATITIS C SCREENING 12/20/2021 INFLUENZA VACCINE 11/14/2024 RSV Vaccine - Adults (1 - Risk 1-dose series) 05/15/2025 Procedures Procedure Name Priority Date/Time Associated Diagnosis Comments SCANNED - LABS 01/21/2025 SCANNED - LABS 01/21/2025 SCANNED - LABS 01/21/2025 SCANNED - LABS 01/21/2025 SCANNED - LABS 01/21/2025 from Last 3 Months Results * LABS SCANNED (01/21/2025) Only the most recent of5 resultswithin the time period is included. Bogdan Glover MD LAB BLOOD ORDERABLES Final Resul t from Last [address] [place] [address] [employer] Care Teams Front Office Supervisor Relationship Specialty Start Date End Date Bogdan Glover MD [address] [place] [address] [place] [address] PCP - General Internal Medicine 12/20/21
--- OUTSIDE RECORDS SUMMARY | 2025-04-06 12:43 | XMS_ITS | Clinical Summary ---
Author Organization [facility] Address [address] [place] [address] Care Team Providers Care Roof Fitter Name Role Phone Bogdan Glover MD Primary Care Provider Allergies Active Allergy Reactions Criticality Noted Date [...] drink first t sana in the morning (EYE-CERTIFIED PEER SPECIALIST) to steady your nerves or to get [...] [facility]-HIV Screening 1985 [facility]-Hepatitis C Screening 1985 [facility]-Infant/Child/Adol SDOH Screenings 1985 [facility]-Varicella Vaccines (2 of 2 - 2-dose childhood series) 10/30/1996 08/07/1996 [facility]-DTaP,Tdap,and Td Vaccines (2 - Tdap) 11/10/1999 11/09/1999 [facility]- SDOH Screenings 2003 [facility]-Adult SDOH Screenings 2003 [facility]-Pap Smear 2006 [facility]-Cervical Cancer Screening 2015 [facility]-HPV/Cotest 2015 [id number] Vaccine ( - 2024- season) 2024 04/01/2021, 07/17/2020, 06/24/2020 [facility]-Influenza Vaccine (#1) 2024 [facility]-Zoster Vaccines (1 of 2) 2035 08/07/1996 [facility]-Hepatitis B Vaccines Completed 001, 12/08/1999, 11/09/1999 HPV Vaccines (No Doses Required) Completed [facility]-HIB Vaccines Aged Out No longer e [...] Patient has decision-making capacity? Yes Care Teams Roof Fitter Relationship Specialty Start Date End Date Bogdan Glover MD [address] [place] [address] [place] [address] PCP - General 08/14/22
[2025-04-06 13:18] VITALS: BP 125/64; PULSE 109; RESP 20; TEMP 36.9; O2SAT 97; BMI 22.3
[2025-04-06 13:45] LABS: Microscopic, Urine URINE MICROSCOPIC (MICROSCOPIC)
[2025-04-06 13:50] LABS: Bilirubin,Urine Negative (Negative); Color,Urine YELLOW (Yellow); Glucose,Urine (UA) Negative (Negative); Ketones,Urine Negative (Negative); Leukocyte Esterase,Urine Negative (Negative); PH,Urine 7.0 (5.0-8.5); Protein,Urine Negative (Negative); Specific Gravity, Urine 1.010 (1.005-1.030); Urobilinogen,Urine 0.2 EU/dl (0.2)
[2025-04-06 14:06] LABS: RBC,Urine Occasional #/hpf (0-3)
--- NOTE | 2025-04-06 14:16 | US_ITS ---
PROCEDURE INFORMATION: Exam: US , Follow up Exam date and time: 04/06/2025 2:43 PM Age: 39 years old Clinical indication: complicated by abdominal or pelvic pain; Generalized abdominal pain; Second trimester (14 weeks 0 days to 27 weeks 6 days); Gestational age or lmp: 26w 3d; ; Additional info: Abdominal pain/ama/used meth 2 days ago LABS AND CLINICAL REPORTS: Gestational age (Established): 26 w 3 d Estimated due date (Established): 07/10/2025 TECHNIQUE: Imaging protocol: Transabdominal ultrasound of the uterus, real time with image documentation. Follow-up (eg, re-evaluation of size by measuring standard growth parameters and amniotic fluid volume, re-evaluation of organ system(s) suspected or confirmed to be abnormal on a previous scan). COMPARISON: US OB >= 14 WEEKS FETUS 02/04/2025 11:26 AM FINDINGS: Gestation: There is a single live intrauterine gestation in cephalic presentation. motion is identified. There is a single intracardiac echogenic focus. Cardiac views are otherwise within range of normal. Remaining visualized anatomy appears within range of normal. A dedicated anatomic screening is not, however, performed. heart rate: 138 bpm BIOMETRY: Gestational age (AUA): 25 w 6 d +/-2 weeks. Estimated due date (AUA): 07/14/2025 Estimated weight: 775.9 g +/-113 g. This corresponds to the 15th percentile based on AUA and the 16 percentile based on LMP. Correlate clinically. EFW by AC, BPD, FL, HC, Hadlock 1985. 5 % percentile Biparietal diameter (BPD): 6.74 cm. EGA (BPD) is 27 w 1 d +/-2 weeks. This corresponds to the 64 % percentile Head circumference (HC): 23.88 cm. EGA (HC) is 25 w 7 d+/-2 weeks. This corresponds to the 12 % percentile Abdominal circumference (AC): 19.69 cm. EGA (AC) is 24 w 3 d+/-2 weeks. This corresponds to the 3 % percentile Femur length (FL): 4.71 cm. EGA (FL) is 25 w 5 d+/-2 weeks. This corresponds to the 17 % percentile HC/AC: 1.21 FL/BPD: 0.7 FL/AC: 0.24 MATERNAL: Cervix: Cervical length measures between 2.45 and 2.8 cm. The cervix measures 2.7 cm with Valsalva maneuvering. The cervix appears closed. The placenta is posterior and to the left and grade 1-2. A few placental lakes are present. No previa. IMPRESSION: Single live intrauterine gestation in cephalic presentation with estimated gestational age based on current exam of approximately 25 weeks and 6 days +/-2 weeks. The abdominal circumference corresponds to the 3rd percentile and EFW based on Hadlock corresponds to the 5th percentile. Recommend continued surveillance -can not exclude small for gestational age fetus. Estimated gestational age based on prior ultrasound performed on 02/04/2025 at 17 weeks and 5 days is approximately 26 weeks and 2 days suggesting appropriate interval growth. Posterior left placenta. Echogenic intracardiac focus. Remaining visualized anatomy appears within range of normal. Correlate clinically. Recommend consultation with garage construction equipment mechanic or Maternal- medicine specialist to discuss significance of this finding. Cervix appears within range of normal. Estimated weight measures approximately 775.9 g +/-113 g, corresponding to the 15th percentile based on AUA, 16 percentile based on LMP and the 5 % percentile based on Hadlock. Recommend continued surveillance. Can not exclude small for gestational age fetus.
[2025-04-06 14:33] LABS: Barbiturates Screen,Urine Negative ng/ml (<200); Benzodiazepines Screen,Urine Negative ng/ml (<200)
[2025-04-06 14:34] LABS: Amphetamine/Metha Screen,Urine Positive ng/ml (<1000)
[2025-04-06 14:36] LABS: Methadone Screen,Urine Positive ng/ml (<300); Opiate Screen,Urine Negative ng/ml (<300)
[2025-04-06 14:37] LABS: Phencyclidine Screen,Urine Negative ng/ml (<25)
== END 2025-04-06 16:15 | disposition home or self-care (01) ==
LOC: OBOUT 12:41 → OB 12:42
PROVIDERS: PCP Pediatrics; Visit Provider Obstetrics & Gynecology
DX: O28.3 Abnormal ultrasonic finding on antenatal screening of mother (principal); O36.8120 Decreased fetal movements, second trimester, not applicable or unspecified; O99.322 Drug use complicating pregnancy, second trimester; O09.522 Supervision of elderly multigravida, second trimester; O99.891 Other specified diseases and conditions complicating pregnancy; F11.90 Opioid use, unspecified, uncomplicated; R10.84 Generalized abdominal pain; Z3A.26 26 weeks gestation of pregnancy
CPT/HCPCS: 76816; 80307; 81001; 99212